=== PATIENT | male | born 1955 | race Caucasian/White ===

== ENCOUNTER 2016-11-17 22:46 | Inpatient (IN) ==
[2016-11-17 23:17] LABS: MANUAL DIFF NEEDED? NO
[2016-11-17 23:21] LABS: BASO% 0.5 % (0.0-0.8); EOS# 0.42 X1000 (0.0-0.7); EOS% 3.9 % (0.0-10.0); HEMATOCRIT 27.7 % (42.0-52.0); HEMOGLOBIN 9.5 g/dL (14.0-18.0); IMM GRAN# 0.03 X1000 (0.0-0.04); IMM GRAN% 0.3 % (0.0-0.5); LYMPH# 2.51 X1000 (1.2-3.4); LYMPH% 23.3 % (20.5-51.1); MCH 35.2 PG (27-31); MCHC 34.3 g/dL (33-37); MCV 102.6 FL (81-99); MONO% 10.2 % (1.7-9.3); MPV 11.6 FL (7.4-10.4); NEUT% 61.8 % (42.2-75.2); PLT 58 X1000 (130-400)
[2016-11-17] MEDS ORDERED: PROTONIX IV ONE (23:27)
[2016-11-17] MEDS ORDERED: SODIUM CHLORIDE 0.9% INJ ONE (23:27)
[2016-11-17 23:52] LABS: AGAP 14; ALBUMIN 2.7 g/dL (3.5-5.0); ALKALINE PHOSPHATASE 102 U/L (32-122); BUN 23 mg/dL (8-22); CALCIUM 8.3 mg/dL (8.8-10.2); CHLORIDE 106 mmol/L (98-107); COSMO 287; GOT 39 U/L (10-34); GPT 19 U/L (10-44); POTASSIUM 4.7 mmol/L (3.5-5.1); SODIUM 142 mmol/L (136-145); TCO2 22 mmol/L (25-35); TOTAL BILIRUBIN 1.93 mg/dL (0.20-1.00); TOTAL PROTEIN 5.3 g/dL (6.3-8.3)
[2016-11-17 23:53] LABS: INR 1.99; PROTIME 21.8 Seconds (9.2-11.7); PTT 35.2 Seconds (22.0-36.0)
[2016-11-17] MEDS: NS 1,000 ML IV PRN (23:53)
--- NOTE | 2016-11-18 00:39 | PROVIDER DOCUMENTATION ---
This chart was entered by Beba Lazar Scribe, acting as scribe for Tyler Hampton MD. HPI-Abdominal Pain/GI Problem - General Chief Complaint: GI Bleed Stated Complaint: VOMITING BLOOD Time Seen by Provider: 11/17/16 22:58 Source: patient Allergies/Adverse Reactions: Patient Allergies Allergy/AdvReac Type Severity Reaction Status Date / Time No Known Allergies Allergy Verified 11/17/16 23:20 - History of Present Illness-ABD Nature of Presenting Problems: 61 year old M presents to the ED with a cc of vomiting blood with an onset of this evening. PT staets that he has also been passing blood in stool with an onset of earlier today. PT states that he began feeling weak yesterday. PT has a history of esphogeal varicies. Abdominal Pain Onset Location: reports: generalized abdomen Severity in ED: reports: moderate Onset/Duration: reports: 2 days ago Associated Symptoms: reports: weakness Emesis Description: reports: red blood Bruising or Bleeding Gums?: No Similar Symptoms Previously?: Yes Recently seen or treated by another doctor?: No Review of Systems - Adult - REVIEW OF SYSTEMS - ADULT Constitutional: denies: chills, fever Eyes: reports: no symptoms reported Ears, Nose, Mouth & Throat: reports: no symptoms reported Cardiovascular: denies: chest pain, palpitations Respiratory: denies: cough, shortness of breath Gastrointestinal: reports: hematemesis, nausea, vomiting Genitourinary: denies: dysuria, hematuria Musculoskeletal: reports: no symptoms reported Integumentary: reports: no symptoms reported Neurological: reports: no symptoms reported Psychiatric: reports: no symptoms reported Endocrine: reports: no symptoms reported Hematologic/Lymphatic: reports: no symptoms reported Allergic/Immunologic: reports: no symptoms reported All Other Systems: Reviewed and Negative Past History - Adult - PAST MEDICAL HISTORY-ADULT Review of Records: reports: Nursing Assessment Review, Medications Reviewed Major Childhood Illnesses: reports: denies history Cardiovascular: reports: denies history Respiratory: reports: denies history Gastrointestinal: reports: GERD, liver disease, other (cirrhosis, hernia) Obstetrical/Gynecological: reports: denies history Genitourinary: reports: denies history Musculoskeletal: reports: denies history Neurological: reports: denies history Endocrine/Immune: reports: denies history Other Conditions: reports: denies history - PRIOR SURGERIES/PROCEDURES Surgical/Procedure History: reports: other (head 1997) - IMMUNIZATION STATUS Childhood Immunizations: See Nurse Assessment Flu Vaccine: See Nurse Assessment - SOCIAL HISTORY Smoking: cigarettes Provider spent 3-5 mins advising pt. on dangers of tobacco.: Discussed manners to quit use, and f/u contacts for add'l counseling. Alcohol Use Frequency: every day Number of drinks per typical drinking period:: 3-4 drinks Physical Exam-General - PHYSICAL EXAM-ADULT Initial Vital Signs Reviewed: Yes - CONSTITUTIONAL General Appearance: alert - EYES Eyes: pale conjunctivae - HEAD, EARS, NOSE, MOUTH & THROAT HENMT: other (dry mucous membranes) - RESPIRATORY Respiratory: chest non-tender, lungs clear, normal breath sounds - CARDIOVASCULAR Cardiovascular: normal peripheral pulses, regular rate, rhythm, no edema - GASTROINTESTINAL (ABDOMEN) Abdominal Exam: tenderness (umbilicus), hernia (umbilical) - SKIN Integumentary: other (pale) - PSYCHIATRIC Psych/Mental Status: normal mood/affect, normal thought content, normal thought process, oriented x 3 Progress - PLAN OF CARE/RESULTS Progress/Plan/Lab Results: Vital Signs - 8 hr 11/17/16 22:51 Temperature 97.7 F Pulse Rate 112 H Respiratory Rate 20 Blood Pressure 117/103 O2 Sat by Pulse Oximetry 100 Orders Category Date Time Status Saline Loc DIRECTED Care 11/17/16 22:55 Active CBC WITH ELECTRONIC DIFF [HEME] Stat Lab 11/17/16 22:55 Ordered COMPREHENSIVE METABOLIC PANEL [CHEM] Stat Lab 11/17/16 22:55 Uncollected OCCULT BLOOD NON-FECES Stat Lab 11/17/16 22:55 Uncollected OCCULT BLOOD SCREENING [STOOL] Stat Lab 11/17/16 22:55 Uncollected PROTIME WITH INR [COAG] Stat Lab 11/17/16 22:55 Uncollected PTT [COAG] Stat Lab 11/17/16 22:55 Uncollected TYPE & SCREEN [BBK] Stat Lab 11/17/16 22:55 Uncollected 0.9% Sodium Chloride Inj [Ns] 1,000 ml Med 11/17/16 22:55 Active IV 125 mls/hr Result Diagrams: 11/17/16 23:09 11/17/16 23:09 Departure - Departure Time of Disposition Decision: 00:38 DIAGNOSIS: GI bleeding Disposition: ADMITTED INPATIENT 09 Certified Medical Emergency: Emergent Condition: Stable Referrals and Follow-Ups: Ashutosh Mederos MD [Primary Care Provider] - - Critical Care Note This patient required my direct & personal management of CC.: Yes Attestation - Physician/ SERGEI Attestation Patient care was provided by Advanced Practice Provider:: Yes Advanced Practice Provider documentation review:: The Mid-level provider documentation, treatment plan and medical decision making was reviewed by the physician who agrees with all treatment and medical decision making by the MLP. The physician spent face to face time with patient:: Yes Advanced Practice Provider documentation review:: The physician spent face to face time with this patient and agrees with all MLP documentation, treatment, and medical decision making by the MLP. See provider notes for further information. This chart was documented by the indicated scribe, (Beba Lazar Scribe) and accurately reflects the services I performed and decisions made by me, Tyler Hampton MD, as attested by the provider's signature.
[2016-11-18] MEDS ORDERED: VITAMIN K SUBQ ONE (01:14)
[2016-11-18] MEDS: NS 1,000 ML IV PRN (01:43)
[2016-11-18] MEDS ORDERED: ZOFRAN IV PRN (02:16)
[2016-11-18] MEDS ORDERED: NS 1,000 ML IV SCH (02:16)
[2016-11-18] MEDS ORDERED: M.V.I.-12 10 ML, FOLIC ACID 1 MG, MAGNESIUM SULFATE 1 GM, THIAMINE 100 MG in NS 1,000 ML IV ONE (02:16)
--- NOTE | 2016-11-18 02:52 | HISTORY AND PHYSICAL ---
PRIMARY CARE PHYSICIAN: Dr. Mederos. REASON FOR ADMISSION: Weakness, nausea, and melanotic stools. HISTORY OF PRESENT ILLNESS: Mr. Usama Diallo is a 61-year-old male with prior history of alcoholic cirrhosis, who states he stopped drinking close to a year ago. He says for the last 2 days he has been feeling very weak, worse when he stands up. Twenty-four hours later, he noticed that he was feeling sick to his stomach and occasionally dry heaving. Early hours of yesterday morning, he went to the bathroom to defecate and passed a lot of melanotic stool. Thereafter, he said he felt much weaker and his nausea got worse. He then vomited a mix of what he described as coffee grounds and dark blood once at home. This caught his attention and he decided to seek care in the ER. While in the waiting room, he vomited dark blood estimated about 200 mL. He says since then he has been feeling even more lightheaded and weak. He has complains for the last 2 days of intermittent, spontaneous, crampy diffuse abdominal pain which is not affected by eating. He says as long as he keeps still the pain eases away and does not come. Once he starts to move around, the pain comes back and lasts a few minutes. No bleeding from any other orifices. No fever, no chills. No cardiorespiratory complaints. Denied any use of any NSAIDs. No neurological complaints. REVIEW OF SYSTEMS: Twelve system review is negative. Positive findings per HPI. Patient says he is thirsty and has a dry mouth for the last 24 hours. His appetite is also diminished. ALLERGIES: No known allergies. MEDICATIONS: None. 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 SOCIAL HISTORY: Smokes about a half pack a day. Lives in a facility for [facility]. No longer drinks or uses illicit drugs. FAMILY HISTORY: Other than lung cancer, denies any heart disease in both first-degree relatives. LABORATORY WORK: White count 10,000, hemoglobin and hematocrit 9 and 27, MCV 102, platelets 58,000, with normal differential. BUN is 23, creatinine 0.8, glucose 109, total bilirubin 1.9, AST 39, ALT 109, total albumin is 2.7. INR is 1.99, PTT 21. The patient's MELD score is 17. EXAMINATION: Vital signs: Blood pressure is 117/103, heart rate 112, respirations is 20, temperature 97.7 degrees, 100% on room air, breathing at 20 per minute. General: He is a middle-aged, man, lying in bed, not in acute distress. He is A and O x3. Normal mood and affect. HEENT: Head is normocephalic, atraumatic. Eyes: He is mildly icteric but mildly pale. JOANIE, EOMI. ENT exam is grossly normal. Neck: Supple. No JVD or carotid bruit. No thyromegaly. Neck: Supple. No JVD or carotid bruit. No thyromegaly. Chest: Clear to auscultation. Good air entry both lung venegas. Cardiovascular: First and second heart sounds heard. No gallops, murmurs, rubs. Rhythm is regular. Abdomen: Full, soft, with diffuse tenderness but no rebound or guarding. No mass or organomegaly. Hypoactive rectal sounds at this time. Patient has an umbilical hernia which is reducible. Extremities: No edema, clubbing or cyanosis. Motor system is grossly intact. Skin: Patient has decreased skin turgor and hypopigmented changes on his right upper extremity. Otherwise, nil of note. Musculoskeletal: Grossly within normal limits. ASSESSMENT: At this time is 1. Upper gastrointestinal bleed, probably secondary to varices (patient has prior history of medium varices). 2. Alcoholic cirrhosis. 3. Prior history of alcohol abuse. 4. Hemorrhagic anemia secondary to #1. 5. Moderate malnutrition. Albumin 2.1. 6. Coagulopathy secondary to chronic liver disease. PLAN: At this time, we will initiate aggressive IV fluid resuscitation. Do serial H and H and if less than 25 we will transfuse as needed. We will consult Dr. Vargas, who is well known to this patient, for possible endoscopy. IV PPIs and octreotide drip will be started. Empiric antibiotics to decrease infective complications in this patient population will be initiated also. Multivitamin also will be administered. In addition to hemoglobin and hematocrit, chemistries should also be followed. cc: Chris Latif MD
[2016-11-18] MEDS: LEVAQUIN 750 MG/D5W 750 MG/150 ML IVPB IV SCH (02:58)
[2016-11-18 03:01] LABS: HEMATOCRIT 24.4 % (42.0-52.0); HEMOGLOBIN 8.3 g/dL (14.0-18.0)
[2016-11-18 03:05] LABS: FERRITIN 207 ng/mL (30-400)
[2016-11-18] MEDS: SANDOSTATIN 500 MICROGM in D5W 100 ML IV SCH ×4 (04:36→22:33)
[2016-11-18 08:34] LABS: HEMATOCRIT 21.5 % (42.0-52.0); HEMOGLOBIN 7.4 g/dL (14.0-18.0)
[2016-11-18] MEDS: NS 1,000 ML IV SCH ×2 (09:36→22:18)
[2016-11-18] MEDS ORDERED: NS 500 ML ONE ×2 (11:06→14:48)
[2016-11-18] MEDS ORDERED: NS 0 ML ONE (12:12)
[2016-11-18] MEDS ORDERED: DIPRIVAN 1% ONE (14:34)
[2016-11-18] MEDS: PROTONIX 80 MG in NS 80 ML IV SCH ×3 (14:37→20:15)
--- NOTE | 2016-11-18 14:37 | OPERATIVE NOTE ---
PROCEDURE DATE: 11/18/2016 PROCEDURE: Esophagogastroduodenoscopy. PREOPERATIVE DIAGNOSIS: Gastrointestinal bleed. POSTOPERATIVE DIAGNOSIS: Hemorrhagic gastritis. No active bleeding. This pleasant gentleman presents with nausea, vomiting with coffee-grounds and bloody stools. Further evaluation being done with upper GI endoscopy. DESCRIPTION OF PROCEDURE: After informed consent and adequate intravenous sedation, the scope introduced to the esophagus. No varices seen. Cardia, fundus, body, antrum, entire area appears to be diffusely hemorrhagic and friable but no active bleeding or brisk bleeding. Duodenum is normal. The scope was withdrawn. The patient tolerated the procedure well without any immediate complications. He probably needs a colonoscopy Monday. cc: Laurie Garzon MD
[2016-11-18] MEDS ORDERED: EXTENSION SET 32 IN 4522 ONE (14:48)
[2016-11-18] MEDS ORDERED: ANESTHESIA PB SET 88 IN 5742 ONE (14:48)
[2016-11-18 22:56] LABS: HEMATOCRIT 24.8 % (42.0-52.0); HEMOGLOBIN 8.6 g/dL (14.0-18.0)
[2016-11-18] MEDS ORDERED: PROTONIX IV SCH (23:00)
[2016-11-19] MEDS: LEVAQUIN 750 MG/D5W 750 MG/150 ML IVPB IV SCH (02:08)
[2016-11-19] MEDS: PROTONIX 80 MG in NS 80 ML IV SCH ×3 (06:36→19:57)
[2016-11-19 07:37] LABS: MANUAL DIFF NEEDED? NO
[2016-11-19 07:49] LABS: PLT 35 X1000 (130-400)
[2016-11-19 07:50] LABS: BASO% 0.7 % (0.0-0.8); EOS# 0.31 X1000 (0.0-0.7); EOS% 7.5 % (0.0-10.0); HEMATOCRIT 27.2 % (42.0-52.0); HEMOGLOBIN 9.3 g/dL (14.0-18.0); INR 1.49; LYMPH# 1.19 X1000 (1.2-3.4); LYMPH% 28.6 % (20.5-51.1); MCH 33.7 PG (27-31); MCHC 34.2 g/dL (33-37); MCV 98.6 FL (81-99); MONO# 0.38 X1000 (0.11-0.59); MONO% 9.1 % (1.7-9.3); MPV 11.1 FL (7.4-10.4); NEUT% 54.1 % (42.2-75.2); PROTIME 16.1 Seconds (9.2-11.7); RBC 2.76 XMIL (4.7-6.1)
[2016-11-19 08:01] LABS: AGAP 6; ALBUMIN 2.3 g/dL (3.5-5.0); ALKALINE PHOSPHATASE 78 U/L (32-122); BUN 18 mg/dL (8-22); CALCIUM 7.3 mg/dL (8.8-10.2); CHLORIDE 111 mmol/L (98-107); COSMO 281; GOT 37 U/L (10-34); GPT 16 U/L (10-44); MAGNESIUM 1.9 mg/dL (1.5-2.7); POTASSIUM 4.7 mmol/L (3.5-5.1); SODIUM 140 mmol/L (136-145); TCO2 23 mmol/L (25-35); TOTAL BILIRUBIN 1.54 mg/dL (0.20-1.00); TOTAL PROTEIN 4.8 g/dL (6.3-8.3)
[2016-11-19] MEDS: SANDOSTATIN 500 MICROGM in D5W 100 ML IV SCH ×2 (09:59→19:57)
[2016-11-19] MEDS: NS 1,000 ML IV SCH (11:11)
[2016-11-19] MEDS ORDERED: NEUTRA-PHOS PO ONE (12:37)
--- NOTE | 2016-11-19 12:50 | PROGRESS NOTE ---
DATE: 11/19/2016 SUBJECTIVE: The patient is resting comfortably in bed. He denies having any nausea, vomiting or abdominal pain this morning. OBJECTIVE: Vital Signs: Temperature 97.6 degrees, blood pressure 91/65, heart rate 49, respirations 16, O2 saturations 98% on 2 L nasal cannula. General: This is an elderly male, lying in bed, in no acute distress. Head: Normocephalic atraumatic. Heart: S1, S2. Normal. Bradycardic. Lungs: Clear to auscultation bilaterally. No wheezes, no rales. No rhonchi. Abdomen: Positive bowel sounds. Soft, nontender, nondistended. Extremities: No edema. No cyanosis. No calf tenderness. Neurologic: The patient is alert and oriented x3. LABS: White blood cell count 4.1, hemoglobin 9.3, hematocrit 27, platelets 35,000. INR 1.4. Sodium 140, potassium 4.7, chloride 111, CO2 23. BUN 18, creatinine 0.9, glucose 87. Phosphorus 2.5, calcium 7.3. AST 37, ALT 16, albumin 2.3. ASSESSMENT AND PLAN: 1. Gastrointestinal bleed. The EGD yesterday showed hemorrhagic gastritis. We will continue on octreotide and Protonix drip. The patient will likely require a colonoscopy at the discretion of the associate product manager. 2. Anemia of acute blood loss. The patient's hemoglobin and hematocrit is stable. 3. Alcoholic liver cirrhosis. Aware. 4. Coagulopathy. Improved. The patient did receive 2 units of FFP yesterday. 5. Tobacco dependence. Aware. 6. Hypotension. The patient is currently on normal saline. We will continue to monitor the patient's blood pressure closely. A 2-dimensional echocardiogram has been ordered. 7. Thrombocytopenia. This is most likely secondary to the patient's liver dysfunction. We will continue to monitor the platelet count closely. cc: Ivis Savage MD
[2016-11-19] MEDS ORDERED: VITAMIN K 10 MG in NS 50 ML IV ONE (16:00)
--- NOTE | 2016-11-19 17:04 | ECHO REPORT ---
ORDER DATE: 11/19/2016 INTERPRETING PHYSICIAN: Dr. Mo Lboo ECHOCARDIOGRAPHIC MEASUREMENTS: Interventricular septum: 1.1 cm. Left ventricular posterior wall: 0.9 cm. Diastolic diameter: 3.8 cm. Left atrium: 4.1 cm. Aortic root: 3.3 cm. SUMMARY OF THE 2-DIMENSIONAL IMAGIN. Normal left ventricular cavity size. Estimated ejection fraction of 60%. 2. Aortic valve leaflets are trileaflet. Mitral valve was normal. Tricuspid valve was normal. 3. Peak velocity across the aortic valve less than 2 m/sec. There is no aortic stenosis. There is trace aortic regurgitation. 4. There is trace mitral regurgitation. Mild tricuspid regurgitation. Peak velocity across the tricuspid valve was 2.5 m/sec. 5. There is no pericardial effusion or obvious intracardiac mass or thrombus seen. cc: MD Ivis Vargas MD
--- NOTE | 2016-11-19 18:09 | PROGRESS NOTE ---
DATE: 11/19/2016 PRIMARY CIGARETTE LIGHTER REPAIRER: Dr. Vargas. SUBJECTIVE: Patient currently resting in chair. He denies any nausea, vomiting or vomiting blood. Denies any bowel movements today. He continues on liquid diet for now. He denies any fevers, rigor, chills. OBJECTIVE: Vitals: Temperature 98.8 degrees, pulse rate 64, respiratory 18, blood pressure 108/73 saturating 90% on 2 L nasal cannula, body weight of 136 pounds 3.2 ounces. General: Patient moderately nourished lying in a chair in no acute distress. HEENT: Pale conjunctiva, mild icterus. Neck: Supple. Abdomen: Soft, nontender, nondistended. Bowel sounds are present. Extremities: No cyanosis, clubbing. Neuro: Alert, awake, oriented. LABS: Hemoglobin and hematocrit is 9.3, 27.2, white count of 4.1, platelet count of 35,000, MCV of 98.6, INR 1.49, PTT of 35.2, PT of 16.1. Sodium 140, potassium 4.7, chloride 111, bicarb 23, anion gap of 6, BUN of 18, creatinine 0.9, glucose of 87, calcium 7.3, phosphorus 2.5 magnesium 1.9, total bilirubin 1.5, AST 37, ALT 16, alkaline phosphatase is 78 , total protein 4.8, albumin of 2.3, ammonia 40, folate 11.9, B12 741. IMPRESSION AND PLAN: 1. Alcoholic liver cirrhosis complicated with history of esophageal varices, portal hypertension, anemia, thrombocytopenia, coagulopathy, hypoalbuminemia. Patient has quit drinking in June 2016. He is followed by Dr. Vargas. Will continue to avoid hepatotoxic drugs. 2. Anemia. Continue to follow. Transfuse 1 unit of blood transfusion his hematocrit less than 23%. 3. Thrombocytopenia. Continue follow and it continues to worsen and go below 20,000 then we may transfuse him 1 unit of platelets. 4. Coagulopathy. Will give vitamin K and try to keep the INR less than 1.5. 5. Gastrointestinal bleeding. Patient continue on octreotide and Protonix drip for 3 days and then will be transitioned to Protonix twice daily. 6. Tobacco dependence, patient counseled to quit smoking completely. 7. Hypotension. Continue with IV fluids and hold any kind of antihypertensive. 8. Gastrointestinal prophylaxis as above with PPIs and Carafate. 9. Will keep him on IV antibiotics in the setting of liver cirrhosis and GI bleeding. 10. Above plan discussed with patient and the RN and all questions. cc: Ashutosh Mederos MD MTDD
[2016-11-19] MEDS: CENTRUM SILVER PO SCH (20:00)
[2016-11-19] MEDS: CARAFATE PO SCH (20:00)
[2016-11-19] MEDS: ICAR-C PO SCH (20:01)
[2016-11-20] MEDS: NS 1,000 ML IV SCH (01:30)
[2016-11-20] MEDS: LEVAQUIN 750 MG/D5W 750 MG/150 ML IVPB IV SCH (02:25)
[2016-11-20] MEDS: PROTONIX 80 MG in NS 80 ML IV SCH ×2 (05:54→16:38)
[2016-11-20 06:11] LABS: INR 1.52; PROTIME 16.4 Seconds (9.2-11.7)
[2016-11-20] MEDS: SANDOSTATIN 500 MICROGM in D5W 100 ML IV SCH ×3 (06:16→16:38)
[2016-11-20 06:17] LABS: HEMATOCRIT 26.7 % (42.0-52.0); MCH 33.3 PG (27-31); MCHC 33.7 g/dL (33-37); MCV 98.9 FL (81-99); MPV 11.8 FL (7.4-10.4); RBC 2.7 XMIL (4.7-6.1)
[2016-11-20 06:38] LABS: AGAP 9; ALKALINE PHOSPHATASE 75 U/L (32-122); BUN 10 mg/dL (8-22); CHLORIDE 112 mmol/L (98-107); COSMO 280; GOT 39 U/L (10-34); GPT 16 U/L (10-44); POTASSIUM 3.4 mmol/L (3.5-5.1); SODIUM 141 mmol/L (136-145); TCO2 20 mmol/L (25-35); TOTAL BILIRUBIN 1.42 mg/dL (0.20-1.00); TOTAL PROTEIN 4.2 g/dL (6.3-8.3)
[2016-11-20 07:07] LABS: CALCIUM 7.1 mg/dL (8.8-10.2)
[2016-11-20] MEDS: ICAR-C PO SCH ×2 (08:26→20:31)
[2016-11-20] MEDS: CENTRUM SILVER PO SCH ×2 (08:26→20:31)
[2016-11-20] MEDS: CARAFATE PO SCH ×4 (08:26→20:31)
[2016-11-20] MEDS ORDERED: KLOR-CON PO ONE (09:11)
[2016-11-20] MEDS ORDERED: VITAMIN K PO ONE (12:20)
--- NOTE | 2016-11-20 14:40 | PROGRESS NOTE ---
DATE: 11/20/2016 SUBJECTIVE: The patient is resting comfortably in bed. He does complain of occasional abdominal discomfort. He has not had a bowel movement yet. OBJECTIVE: Vital Signs: Temperature 98.5 degrees, blood pressure 105/65, heart rate 54, respirations 15, O2 saturations 91% on room air. General: This is an elderly male, lying in bed, in no acute distress. Head: Normocephalic, atraumatic. Heart: S1, S2. Normal. Regular rate and rhythm. Lungs: Clear to auscultation bilaterally. No wheezes, no rales. No rhonchi. Abdomen: Positive bowel sounds. Soft, nontender, nondistended. Extremities: No edema. No cyanosis. No calf tenderness. Neurologic: The patient is alert oriented x3. LABORATORY: White blood cell count 9.2, hemoglobin 9, hematocrit 26, platelets 39,000. INR 1.5, sodium 141, potassium 3.4, chloride 112, CO2 20, BUN 10, creatinine 0.8, glucose 97. Total bilirubin 1.4, AST 39, ALT 16, albumin 2. ASSESSMENT AND PLAN: 1. Gastrointestinal bleed. The patient's hemoglobin and hematocrit are slightly decreased today. The patient has not had a bowel movement yet or any further hematemesis. We will continue on octreotide and Protonix drip. Further management as per the doweler. 2. Hemorrhagic gastritis. Continue on Protonix drip. 3. Alcoholic liver cirrhosis. Aware. 4. Thrombocytopenia. We will continue to monitor the platelet count closely. The patient may benefit from a platelet transfusion if colonoscopy is planned during this hospitalization. 5. Coagulopathy. We will give the patient a dose of vitamin K today. 6. Severe protein calorie malnutrition. We will consult the dietitian for further diet recommendations. 7. Hypokalemia. We will replace the patient's potassium. 8. Anemia. The patient's hemoglobin and hematocrit is slightly decreased today. We will continue to monitor closely and transfuse as needed. cc: Ivis Savage MD
--- NOTE | 2016-11-20 17:40 | PROGRESS NOTE ---
DATE: 11/20/2016 PRIMARY CARE PHYSICIAN: Mary Kay Vargas MD SUBJECTIVE: Patient resting in bed. He denies any nausea, vomiting or vomiting blood. He had no bowel movements today. He is able to eat 50% of his liquid meal day. He denies any fevers, rigors, or chills. OBJECTIVE: Vital signs: Temperature of 98.3 degrees, pulse rate 55, respiratory rate 18, blood pressure 107/60, saturating 93% on room air. General Appearance: Thinly built, lying in bed, in no acute distress. HEENT: Mild icterus. Neck: Supple. Abdomen: Soft, nontender, nondistended. Bowel sounds heard. No guarding. No rebound. Extremities: No cyanosis, clubbing. Neurologic: Alert, awake, oriented. LABORATORY/DIAGNOSTICS: Hemoglobin and hematocrit 9 and 26.7, white count 3.27, platelet count of 39,000. INR 1.5, PT of 16.4, sodium 140, potassium 3.4, chloride 112, bicarb 20, anion gap of 9, BUN of 10, creatinine 0.8, glucose of 97, calcium 7.1, total bilirubin is 1.42, AST 39, ALT 16, alkaline phosphatase 75, total protein 4.2, albumin of 2. Ammonia level of 40. His last CAT scan was done on 10/18/2016 which showed cirrhosis. Mild constipation. IMPRESSION AND PLAN: 1. Gastrointestinal bleed which the patient will continue on Protonix and octreotide drip total of 72 hours. After that, IV Protonix twice daily. We will continue to watch hemoglobin and hematocrit and type and cross, transfuse hematocrit to keep more than 25%. The patient will resume further care with Dr. Vargas from tomorrow. 2. Alcoholic liver cirrhosis. Avoid any hepatotoxic drugs. The patient has quit alcohol since June 2016. He may need a liver transplant evaluation at [facility]. We will leave it to the discretion of primary care team and Dr. Vargas. 3. Thrombocytopenia which is improved slightly. I will continue to watch. 4. Coagulopathy. Continue watch done. 5. Anemia secondary to above. We will continue on iron supplementation. 6. The above plan was discussed with the patient and the nurse and all questions answered. cc: MD Mary Kay Espino MD Katherine Takundwa, MD
[2016-11-21] MEDS: SANDOSTATIN 500 MICROGM in D5W 100 ML IV SCH ×3 (03:15→21:56)
[2016-11-21] MEDS: PROTONIX 80 MG in NS 80 ML IV SCH (03:15)
[2016-11-21] MEDS: LEVAQUIN 750 MG/D5W 750 MG/150 ML IVPB IV SCH (03:15)
--- NOTE | 2016-11-21 06:02 | EKG Report ---
Test Performed on : 11/19/2016 11:12:49 AM Test Reason : bradycardia Blood Pressure : / mmHG Vent. Rate : 058 BPM Atrial Rate : 058 BPM P-R Int : 136 ms QRS Dur : 088 ms QT Int : 460 ms P-R-T Axes : 066 051 043 degrees QTc Int : 451 ms Sinus bradycardia. Otherwise normal ECG When compared with ECG of 14-MAR-2016 05:39, No significant change was found Confirmed by Jeremiah Brito MD ([id number]) on 11/21/2016 11:21:36 AM
[2016-11-21] MEDS: PROTONIX IV SCH ×2 (08:50→20:44)
[2016-11-21] MEDS: CARAFATE PO SCH ×4 (08:50→20:05)
[2016-11-21] MEDS: CENTRUM SILVER PO SCH ×2 (08:50→20:05)
[2016-11-21] MEDS: SODIUM CHLORIDE 0.9% INJ SCH (08:50)
[2016-11-21] MEDS: ICAR-C PO SCH ×2 (08:50→20:05)
[2016-11-21 09:11] LABS: INR 1.5; PROTIME 16.2 Seconds (9.2-11.7)
[2016-11-21 09:15] LABS: HEMOGLOBIN 10.3 g/dL (14.0-18.0); MCH 34.3 PG (27-31); MCHC 34.3 g/dL (33-37); MPV 10.9 FL (7.4-10.4)
[2016-11-21 09:24] LABS: AGAP 8; ALBUMIN 2.2 g/dL (3.5-5.0); ALKALINE PHOSPHATASE 82 U/L (32-122); BUN 8 mg/dL (8-22); CALCIUM 7.7 mg/dL (8.8-10.2); CHLORIDE 108 mmol/L (98-107); COSMO 274; GOT 39 U/L (10-34); GPT 16 U/L (10-44); MAGNESIUM 1.6 mg/dL (1.5-2.7); POTASSIUM 3.6 mmol/L (3.5-5.1); SODIUM 137 mmol/L (136-145); TCO2 21 mmol/L (25-35); TOTAL BILIRUBIN 1.59 mg/dL (0.20-1.00); TOTAL PROTEIN 4.6 g/dL (6.3-8.3)
[2016-11-21] MEDS: VITAMIN K SUBQ SCH (10:17)
--- NOTE | 2016-11-21 11:08 | PROGRESS NOTE ---
DATE: 11/21/2016 SUBJECTIVE: The patient has no focal complaints. OBJECTIVE: Vital Signs: Blood pressure 92/58, heart rate of 56, respiratory rate 16, temperature 99.2 degrees, and oxygen saturation 96% on room air. Cardiovascular: Regular rate and rhythm. Pulmonary: Bilateral breath sounds. Clear to auscultation. Gastrointestinal: Soft, nontender, nondistended. Bowel sounds are positive. Extremities: No clubbing or cyanosis. Lymphatics: No peripheral edema. Neurological: Nonfocal. LABORATORY DATA: INR was 1.5. BUN and creatinine were 8 and 0.9. Total bilirubin of 1.59. Platelets of 35,000, white count of 3, hemoglobin and hematocrit of 10 and 30, and that is status post 2 units of blood and 2 units of FFP. PROBLEM LIST: 1. Acute gastrointestinal bleed associated with hemorrhagic gastritis. Hemoglobin and hematocrit seem to be stabilizing. He has no gross evidence of bleeding, however, and his blood count has stabilized. Platelet count is still low. I am going to go ahead and give him 1 dose of platelets just to get his platelets at least above 50,000. He is on intravenous proton pump inhibitor, octreotide, and Gastrointestinal is following. 2. Alcoholic liver cirrhosis. He is stable. He reportedly quit alcohol since June 2016, so he will be due for a liver transplant evaluation in another month if he continues to be sober. 3. Coagulopathy. We will continue vitamin K and follow. DISPOSITION: Pending other issues. If his hemoglobin and hematocrit continue to stabilize, I think he is probably okay to go to the floor in the next 24 hours. cc: Murtaza Burns MD
[2016-11-21] MEDS ORDERED: NS 250 ML IV SCH (11:52)
[2016-11-21] MEDS ORDERED: NS 250 ML ONE (11:54)
[2016-11-22] MEDS: LEVAQUIN 750 MG/D5W 750 MG/150 ML IVPB IV SCH (03:00)
[2016-11-22 05:51] LABS: HEMATOCRIT 28.5 % (42.0-52.0); HEMOGLOBIN 9.9 g/dL (14.0-18.0); MCH 34.5 PG (27-31); MCHC 34.7 g/dL (33-37); MCV 99.3 FL (81-99); MPV 11.3 FL (7.4-10.4); RBC 2.87 XMIL (4.7-6.1)
[2016-11-22 06:05] LABS: AGAP 8; ALBUMIN 2.3 g/dL (3.5-5.0); ALKALINE PHOSPHATASE 82 U/L (32-122); BUN 7 mg/dL (8-22); CALCIUM 7.8 mg/dL (8.8-10.2); CHLORIDE 107 mmol/L (98-107); COSMO 273; GOT 36 U/L (10-34); GPT 15 U/L (10-44); POTASSIUM 3.8 mmol/L (3.5-5.1); SODIUM 138 mmol/L (136-145); TCO2 23 mmol/L (25-35); TOTAL BILIRUBIN 1.64 mg/dL (0.20-1.00); TOTAL PROTEIN 4.6 g/dL (6.3-8.3)
[2016-11-22] MEDS: SANDOSTATIN 500 MICROGM in D5W 100 ML IV SCH ×2 (08:06→18:11)
[2016-11-22] MEDS: CARAFATE PO SCH ×4 (08:07→20:47)
[2016-11-22] MEDS: CENTRUM SILVER PO SCH ×2 (08:07→20:47)
[2016-11-22] MEDS: VITAMIN K SUBQ SCH (08:07)
[2016-11-22] MEDS: ICAR-C PO SCH ×2 (08:07→20:47)
[2016-11-22] MEDS: PROTONIX IV SCH ×2 (08:42→20:47)
[2016-11-22] MEDS: SODIUM CHLORIDE 0.9% INJ SCH ×2 (08:42→20:47)
--- NOTE | 2016-11-22 11:12 | PROGRESS NOTE ---
DATE: 11/22/2016 SUBJECTIVE: Patient denies any evidence of active bleeding. He is tolerating a full liquid diet. No significant complaints today. OBJECTIVE: Vital Signs: Temperature 98.1 degrees, pulse 61, respirations 16, blood pressure 97/51. General: Patient is awake and alert, in no acute distress. He is currently eating a full liquid diet. Respiratory: Lung sounds essentially clear. Abdomen: Soft. Some mild tenderness with palpation. DIAGNOSTIC RESULTS: Laboratory: Hematology reveals white count 4.47, hemoglobin 9.9, hematocrit 28.5, MCV 99.3. Chemistry: Sodium 138, potassium 3.8, chloride 107, CO2 23, BUN 7, creatinine 0.8, glucose 84. Total bilirubin 1.64, AST 36, ALT 15, alkaline phosphatase 82. Ammonia was 40 on 11/19/2016. ASSESSMENT: 1. Gastrointestinal bleed. Esophagogastroduodenoscopy was done on 11/[address] Garzon that showed hemorrhagic gastritis, but there was no gross evidence of active bleeding. He continues to be on octreotide and Protonix intravenous push. 2. Alcoholic liver cirrhosis. He quit alcohol since June. 3. Coagulopathy. 4. Low platelets. He has received platelets yesterday. PLAN: We will proceed with a colonoscopy and this will be done by Dr. Vargas tomorrow. We will prep him today. Further plans will be made according to findings. Further plans will be made as needed and per Dr. Vargas when she returns tomorrow. Dictated by JAMEL Webster for Rush Chen MD cc: JAMEL Wilkes MD
[2016-11-22] MEDS ORDERED: GOLYTELY PO ONE (14:00)
[2016-11-23] MEDS: SANDOSTATIN 500 MICROGM in D5W 100 ML IV SCH (03:55)
[2016-11-23 05:06] LABS: HEMATOCRIT 29.6 % (42.0-52.0); HEMOGLOBIN 10.1 g/dL (14.0-18.0); MCH 34.6 PG (27-31); MCHC 34.1 g/dL (33-37); MCV 101.4 FL (81-99); MPV 11.5 FL (7.4-10.4); RBC 2.92 XMIL (4.7-6.1)
[2016-11-23 05:19] LABS: AGAP 9; ALBUMIN 2.2 g/dL (3.5-5.0); ALKALINE PHOSPHATASE 82 U/L (32-122); BUN 7 mg/dL (8-22); CALCIUM 7.8 mg/dL (8.8-10.2); CHLORIDE 108 mmol/L (98-107); COSMO 277; GOT 32 U/L (10-34); GPT 14 U/L (10-44); POTASSIUM 3.8 mmol/L (3.5-5.1); SODIUM 140 mmol/L (136-145); TCO2 23 mmol/L (25-35); TOTAL BILIRUBIN 1.66 mg/dL (0.20-1.00); TOTAL PROTEIN 4.7 g/dL (6.3-8.3)
[2016-11-23] MEDS: VITAMIN K SUBQ SCH (08:01)
[2016-11-23] MEDS: SODIUM CHLORIDE 0.9% INJ SCH (08:22)
[2016-11-23] MEDS: PROTONIX IV SCH (08:22)
[2016-11-23] MEDS ORDERED: MIRALAX PO ONE (08:42)
[2016-11-23] MEDS: CENTRUM SILVER PO SCH (09:19)
[2016-11-23] MEDS: CARAFATE PO SCH ×3 (09:19→17:34)
[2016-11-23] MEDS: ICAR-C PO SCH (09:19)
[2016-11-23 09:52] LABS: INR 1.52; PROTIME 16.4 Seconds (9.2-11.7)
--- NOTE | 2016-11-23 10:53 | PROGRESS NOTE ---
DATE: 11/23/2016 SUBJECTIVE: The patient has no focal complaints. OBJECTIVE: Vital signs: Blood pressure 102/61, heart rate of 58, respiratory rate 16, temperature 99 degrees. Cardiovascular: Regular rate and rhythm. Pulmonary: Benign. Breath sounds clear to auscultation. GI: Soft, nontender, nondistended. Bowel sounds were positive. LABORATORY DATA: White count 5, hemoglobin and hematocrit 10 and 29, platelets of 47,000--that is up a little bit from yesterday's 46,000. INR 1.66. PROBLEM LIST: 1. Gastrointestinal bleed likely related again to hemorrhagic gastritis. We will continue to follow. Hemoglobin and hematocrit are stable. There is no further evidence of bleeding. Plan is for colonoscopy today, I am assuming because he is high risk. INR is still up a little bit. Platelets are still low. He is still on octreotide and q.12 h. proton pump inhibitor. I think today will be day 5 for the octreotide--that can be discontinued. 2. Alcoholic liver, alcoholic cirrhosis, [place] cirrhosis, currently stable. Will need outpatient liver transplant evaluation. 3. Coagulopathy. He has been getting Vitamin K and I think Dr. Vargas ordered another unit of FFP today. DISPOSITION: Again, I think from the active GI bleed issues he seems to be stable. I did not get in report that he had any continued bleeding. If his colonoscopy is negative, could consider discharge either later today, definitely by tomorrow. cc: Murtaza Burns MD
[2016-11-23] MEDS ORDERED: SANDOSTATIN 500 MICROGM in D5W 100 ML IV SCH (13:00)
[2016-11-23] MEDS ORDERED: NS 500 ML IV SCH (15:14)
[2016-11-23] MEDS ORDERED: DIPRIVAN 1% ONE (18:24)
[2016-11-23] MEDS: AUGMENTIN PO SCH (22:13)
--- NOTE | 2016-11-23 22:39 | PROGRESS NOTE ---
DATE: 11/23/2016 SUBJECTIVE: The patient is a 61-year-old, white male, admitted on 11/18/2016 with acute GI bleed. He underwent an EGD by Dr. Garzon over the weekend and it was negative for source of bleeding. He continues to have a low hemoglobin. We were asked to perform endoscopic evaluation. The patient denies abdominal pain, nausea with vomiting, fever and chills. He received GoLYTELY overnight. However, his stool remains brown. OBJECTIVE: Vital signs: On exam, his blood pressure is 102/61, pulse 58, respirations 16, temperature of 98 degrees. HEENT: Negative for jaundice. Chest: Clear to auscultation with normal expiratory effort. Cardiovascular: Reveals regular rate and rhythm with no murmurs, gallops, or rubs. Abdominal: Reveals normoactive bowel sounds. The abdomen is soft, nontender with no rebound or guarding. Extremities: Bilaterally are negative for cyanosis, clubbing, or edema. OBJECTIVE DATA: Reveals a hemoglobin of 10.1 with hematocrit of 29.6 and white count of 5.24. He has 47,000 platelets. Sodium is 140, potassium 3.8, chloride 108, CO2 of 23, BUN 7, creatinine 0.7, glucose of 91. Calcium 7.8, total bilirubin 1.66, AST 32, ALT 14, alkaline phosphatase 82, total protein 4.7, albumin 2.2. IMPRESSION: 1. Gastrointestinal bleed with no source found. 2. Alcohol liver disease. 3. History of peptic ulcer disease. 4. Thrombocytopenia, secondary to his cirrhosis and alcohol liver disease. 5. Abdominal pain. 6. Coagulopathy secondary to alcohol liver disease. (International normalized ratio greater than 1.52). RECOMMENDATION: 1. Please repeat his prothrombin time and international normalized ratio. I would administer fresh frozen plasma x1 unit if it remains greater than 1.5. The patient has significant thrombocytopenia, would benefit from 1 unit of platelets prior to endoscopic evaluation. 2. We will plan to perform a colonoscopy today to assess his lower gastrointestinal tract for sources of bleeding. 3. Please administer MiraLAX prep. 4. We will plan to perform the procedure this afternoon. Consent was discussed and questions were answered. cc: MD Ashutosh Still MD Alexis R. Penot, MD
--- NOTE | 2016-11-24 00:52 | OPERATIVE NOTE ---
PROCEDURE DATE: 11/23/2016 REFERRING PHYSICIAN: Murtaza Burns M.D. PRIMARY CARE PHYSICIAN: Ashutosh Mederos M.D. INDICATION FOR PROCEDURE: GI bleed, with no source found on EGD. PROCEDURE PERFORMED: Colonoscopy, with control of bleeding. CONSENT: Informed consent was obtained from the patient prior to the procedure. The risks, benefits, and alternatives were discussed. MEDICATION: The patient received monitored anesthesia care. PERFORMING PHYSICIAN: Mary Kay Vargas M.D. ASSISTANTS: 1. [facility]. [facility] 2. Binta Richards RN. 3. Pina Hernandez CRNA. 4. Ish Hernandez M.D. (anesthesia). COMPLICATIONS: There were no complications. ESTIMATED BLOOD LOSS: 2-3 mL from the actively bleeding AVMs. There was minimal blood loss directly related to the procedure. SPECIMENS REMOVED: None. FINDINGS: After sedation was achieved, the pediatric colonoscope was inserted to the terminal ileum. The terminal ileum appeared endoscopically normal. In the cecal base, there were nonbleeding AVMs. The appendiceal orifice and ileocecal valve appeared endoscopically normal. On the proximal ascending colon surface of the valve, as well as in the initial portion of the ascending colon, there were 3 actively bleeding AVMs. Cautery was applied. Upon further withdrawal, the mucosa of the ascending colon appeared inflamed, but there were no other lesions found. In the transverse colon, there was an additional bleeding AVM in the mid transverse colon that was cauterized. The colon appeared inflamed, but there were no ulcerations or other lesions. Upon further withdrawal, just distal to the splenic flexure, there was a significant increase in the amount of inflammation present in the colon. There were noninflamed diverticula in the descending, sigmoid, and rectosigmoid colon. No masses or polyps were seen. In the rectum, there were nonbleeding AVMs. There were grade 2 internal hemorrhoids on forward view. There were large hemorrhoids on retroflexed view. There was no stigmata of bleeding. After the exam was complete, the lumen was decompressed and the scope was removed without incident. IMPRESSION: 1. 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 Hemostasis was achieved with cautery. 2. Nonspecific colitis. 3. Nonbleeding arteriovenous malformations in the left colon. 4. Diverticulosis. 5. Grade 2 internal hemorrhoids. 6. Nonbleeding rectal arteriovenous malformations. 7. Large external hemorrhoids. RECOMMENDATIONS: 1. Continue octreotide for another 72 hours, and then stop. 2. Monitor serial hemoglobin and hematocrit, given his actively bleeding lesions. 3. Please monitor his liver function tests, PT/INR, and CRP over the next 3 days. 4. Begin Augmentin 1 p.o. b.i.d. for 10 days for the nonspecific colitis. Due to his INR being greater than 1.5, biopsies were not taken. 5. Repeat colonoscopy in 5 years to screen for polyps. 6. Assuming that his hemoglobin remains stable, I anticipate he should be ready for discharge in the next 2-3 days. 7. We will have the patient return to clinic in 4 weeks to assess interval progress. cc: MD Murtaza Still MD Malcolm R. Hendricks, MD MTDD
[2016-11-24 06:20] LABS: INR 1.44; PROTIME 15.5 Seconds (9.2-11.7)
[2016-11-24 06:29] LABS: HEMATOCRIT 27.9 % (42.0-52.0); HEMOGLOBIN 9.4 g/dL (14.0-18.0); MCH 34.6 PG (27-31); MCHC 33.7 g/dL (33-37); MCV 102.6 FL (81-99); MPV 11.4 FL (7.4-10.4); RBC 2.72 XMIL (4.7-6.1)
[2016-11-24 06:36] LABS: AGAP 9; BUN 8 mg/dL (8-22); CALCIUM 7.5 mg/dL (8.8-10.2); CHLORIDE 106 mmol/L (98-107); COSMO 276; POTASSIUM 3.7 mmol/L (3.5-5.1); SODIUM 138 mmol/L (136-145); TCO2 23 mmol/L (25-35)
[2016-11-24 06:47] LABS: ALBUMIN 2.6 g/dL (3.5-5.0); DIRECT BILIRUBIN 0.6 mg/dL (0.00-0.20); TOTAL BILIRUBIN 1.5 mg/dL (0.20-1.00); TOTAL PROTEIN 4.9 g/dL (6.3-8.3)
[2016-11-24] MEDS ORDERED: ANESTHESIA PB SET 88 IN 5742 ONE (08:18)
[2016-11-24] MEDS ORDERED: LR 1,000 ML ONE (08:18)
[2016-11-24] MEDS: AUGMENTIN PO SCH (09:43)
[2016-11-24] MEDS ORDERED: BENADRYL IV ONE (11:53)
[2016-11-24] MEDS ORDERED: TYLENOL PO ONE (11:53)
[2016-11-24] MEDS ORDERED: TYLENOL PO PRN (16:11)
[2016-11-24] MEDS ORDERED: ZOFRAN IV PRN (16:11)
[2016-11-24] MEDS: SANDOSTATIN 500 MICROGM in D5W 100 ML IV SCH (16:48)
[2016-11-24] MEDS: PROTONIX IV SCH (16:51)
[2016-11-24] MEDS: SODIUM CHLORIDE 0.9% INJ SCH (16:51)
[2016-11-24] MEDS: LEVAQUIN 500 MG/D5W 500 MG/100 ML IVPB IV SCH (16:52)
--- NOTE | 2016-11-24 17:18 | PROGRESS NOTE ---
DATE: 11/24/2016 SUBJECTIVE: The patient has no focal complaints. OBJECTIVE: Vital signs: Blood pressure 98/55, heart rate 57, respiratory rate 16, temperature 98.7 degrees. Cardiovascular: Regular rate and rhythm. Pulmonary: Bilateral breath sounds. Clear to auscultation. GI: Soft, nontender, nondistended. Bowel sounds are positive. LABORATORY DATA: Hemoglobin and hematocrit are 9 and 27, platelets of 65,000. INR of 1.4. CMP was normal. Bilirubin 1.5. Colonoscopy findings as described. He had multiple linear erosions and some active bleeding associated with AVMs and he had hemostasis with cautery, diverticulosis, external internal hemorrhoids. PROBLEM LIST: 1. Upper gastrointestinal bleed. We will resume his Protonix and follow closely. Hemoglobin and hematocrit have dropped a little bit since yesterday but is stable since the 7th, which was 4 days ago. So if he bleeding he is not dropping his hemoglobin significantly. Plan for the diverticular issues is to continue the octreotide for another 2-[address] Vargas's recommendations; we reorder that. Somehow it was not continued with his transfer orders. 2. Anemia. The patient is stable. Continue to monitor. 3. Colitis. He was empirically placed on Augmentin but the patient reports increasing swelling and pain in his eyes. He had been on Levaquin. I am just going to continue that for right now with Digna and we will follow clinically. 4. Disposition. Again pending GI but we will continue to follow and see how he is doing. Hopefully home in the next couple of days. cc: Murtaza Burns MD
[2016-11-24] MEDS: FLAGYL 500 MG/NS 500 MG/100 ML IVPB IV SCH (17:58)
[2016-11-25] MEDS: FLAGYL 500 MG/NS 500 MG/100 ML IVPB IV SCH ×5 (01:17→18:36)
[2016-11-25] MEDS: SANDOSTATIN 500 MICROGM in D5W 100 ML IV SCH ×3 (01:18→12:20)
[2016-11-25] MEDS: PROTONIX IV SCH ×2 (04:56→16:03)
[2016-11-25] MEDS: SODIUM CHLORIDE 0.9% INJ SCH ×2 (04:56→16:03)
[2016-11-25 06:11] LABS: HEMATOCRIT 28.3 % (42.0-52.0); HEMOGLOBIN 9.5 g/dL (14.0-18.0); MCH 34.8 PG (27-31); MCHC 33.6 g/dL (33-37); MCV 103.7 FL (81-99); MPV 11.5 FL (7.4-10.4); RBC 2.73 XMIL (4.7-6.1)
[2016-11-25 06:17] LABS: INR 1.63; PROTIME 17.6 Seconds (9.2-11.7)
[2016-11-25 06:34] LABS: AGAP 10; BUN 6 mg/dL (8-22); CALCIUM 7.3 mg/dL (8.8-10.2); CHLORIDE 112 mmol/L (98-107); COSMO 286; MAGNESIUM 1.7 mg/dL (1.5-2.7); POTASSIUM 4.4 mmol/L (3.5-5.1); SODIUM 145 mmol/L (136-145); TCO2 23 mmol/L (25-35)
[2016-11-25] MEDS: THERA M PLUS PO SCH (08:50)
[2016-11-25] MEDS: LEVAQUIN 500 MG/D5W 500 MG/100 ML IVPB IV SCH ×2 (15:46→17:26)
[2016-11-26] MEDS: SANDOSTATIN 500 MICROGM in D5W 100 ML IV SCH (04:04)
[2016-11-26] MEDS: FLAGYL 500 MG/NS 500 MG/100 ML IVPB IV SCH ×2 (04:04→14:22)
--- NOTE | 2016-11-26 07:24 | PROGRESS NOTE ---
DATE: 11/25/2016 SUBJECTIVE: The patient has no focal complaints. OBJECTIVE: Vital Signs: Blood pressure 155, heart rate 60, respiratory rate 18, temperature 98.4 degrees. Cardiovascular: Regular rate and rhythm. Pulmonary: Bilateral breath sounds. Clear to auscultation. Gastrointestinal: Abdomen is soft, nontender, nondistended. Bowel sounds are positive. Extremities: No clubbing or cyanosis. Lymphatics: No peripheral edema. LABORATORY DATA: White count 4. Hemoglobin and hematocrit 9 and 28. Platelets of 58,000. Chemistries look okay. PROBLEM LIST: 1. Upper gastrointestinal bleed, lower gastrointestinal bleed, with hemorrhagic gastritis and colonic arteriovenous malformations. Hemoglobin and hematocrit is stable. We will continue to monitor. 2. Nonspecific colitis. He is on Levaquin and Flagyl. We will continue to follow closely. 3. Cirrhosis, end-stage. We will continue to monitor. He appears to be compensated. DISPOSITION: The patient is very interested in trying to go home soon. I think we could probably complete his treatment tomorrow and he can go home when stable. cc: Murtaza Burns MD
[2016-11-26] MEDS: PROTONIX IV SCH (08:13)
[2016-11-26 08:45] LABS: HEMATOCRIT 28.1 % (42.0-52.0); HEMOGLOBIN 9.4 g/dL (14.0-18.0)
[2016-11-26] MEDS: THERA M PLUS PO SCH (11:42)
[2016-11-26 15:48] VITALS: BP 107/57
--- NOTE | 2016-11-26 19:04 | PROGRESS NOTE ---
DATE: 11/24/2016 SUBJECTIVE: The patient states that he feels much better and denies bleeding overnight. On exam, his blood pressure is 98/55, pulse 57, respirations 16, temperature of 98.7 degrees. On abdominal examination, his abdomen is soft, nontender, with no rebound or guarding. OBJECTIVE DATA: Reveals a hemoglobin of 9.4 with hematocrit of 27.9 and a white count of 4.51. He has 65,000 platelets. His PT is 15.5 with an INR of 1.4. His sodium is 138, potassium 3.7, chloride 106, CO2 of 23, BUN 8, creatinine 0.7 with a glucose of 127. Calcium is 7.5, total bilirubin 1.50, direct bilirubin 0.60, AST 33, ALT 14, alkaline phosphatase 99, total protein 4.9, albumin 2.6. RECOMMENDATION: 1. The patient remains on octreotide drip for bleeding from arteriovenous malformations that were cauterized. Overall, he is doing well. Therefore, I would recommend monitoring for the next 1-2 days. If his hemoglobin remains stable, he should be able to be discharged over the weekend. 2. We will have the patient return to clinic in 3-4 weeks to assess interval progress. cc: MD Murtaza Still MD Malcolm R. Hendricks, MD
--- NOTE | 2016-11-26 19:12 | PROGRESS NOTE ---
DATE: 11/26/2016 SUBJECTIVE: The patient states that he feels much better and is ready to go home. His hemoglobin dropped slightly but has remained stable overnight. PHYSICAL EXAMINATION: Vital Signs: His blood pressure is 109/66, pulse 66, respiration 18, temperature of 98.3 degrees. OBJECTIVE DATA: Reveals a hemoglobin of 9.5 with hematocrit of 28.3, and a white count of 4.28. He has 58,000 platelets. PT is 17.6 with an INR of 1.63. Sodium 145, potassium 4.4, chloride 112, CO2 of 23, BUN 6, creatinine 0.8 with a glucose of 97. Calcium is 7.3 with a magnesium of 1.7. RECOMMENDATION: 1. Continue current medical management. 2. I anticipate discharge in the next 24-48 hours as long as his hemoglobin remains stable. 3. He had questions about liver transplant. Because his last drink was a few months ago, he will need to be involved in alcohol rehab and follow the protocol to be evaluated for liver transplant. Currently, his MELD score does not indicate transplantation is necessary at this time. I recommend that he return to clinic for formal evaluation to determine when we should refer him for possible outpatient liver transplant clinic appointment. 4. We will have the patient return to clinic in 3-4 weeks after hospital discharge. cc: MD Ashutosh Still MD Alexis R. Penot, MD
--- NOTE | 2016-11-28 05:21 | DISCHARGE SUMMARY ---
ADMISSION DATE: 11/18/2016 DISCHARGE DATE: 11/26/2016 DISCHARGE DIAGNOSES: 1. Upper gastrointestinal bleed and lower gastrointestinal bleed. 2. Alcoholic cirrhosis. 3. Coagulopathy associated with cirrhosis. 4. Anemia. 5. Moderate malnutrition. PROCEDURES: 1. EGD completed by Dr. Garzon on 11/18/2016 with hemorrhagic gastritis without bleeding. 2. Colonoscopy per Dr. Vargas on 11/23/2016 with descending colon and transverse colon AVM, nonspecific colitis, nonbleeding AVM in left colon, diverticulosis, and internal and external hemorrhoids. 3. Blood product transfusions, he had 2 units of blood, 3 units of FFP, and 2 units of platelets. HOSPITAL COURSE: Briefly, this is a 61-year-old gentleman with alcoholic cirrhosis, although I do not think he has had any alcohol in the last 4-5 months. He came in with nausea, vomiting, and melenic stool. He was placed on IV fluids, PPI, octreotide. EGD showed hemorrhagic gastritis. He was maintained on octreotide and Protonix. He was supplemented, getting blood products. Echocardiogram was obtained. He had hypotensive issues. EF was 60%, really otherwise unremarkable. Hemoglobin and hematocrit stabilized. I did end up giving him a dose of platelets. He ended up getting 2 units of blood. He was maintained on vitamin K. He has slowly improved. On the , his hemoglobin and hematocrit had stopped. We did give him a dose of platelets at that time. On the , the plan was for colonoscopy the following day, when Dr. Vargas would return but his hemoglobin and hematocrit had been stable. However, his colonoscopy showed some bleeding associated with AVMs which were cauterized. Dr. Vargas recommended another 72 hours of octreotide. By the , he was stabilized. His hemoglobin and hematocrit had been 9 and 28 pretty much since the . It had gone up to 10 and 29 on the but was 9 and 28 on the . He has not had any further bleeding. Initially, I put him on Augmentin for his colitis. Discharge condition was stable. He will need a repeat CBC in about a week. He will be discharged on Cipro 500 b.i.d. for another 5 days, Flagyl 500 t.i.d. for another 5 days, multivitamin daily, and Prilosec 40 b.i.d. DISCHARGE CONDITION: Stable. TIME SPENT: This is a 35 minute discharge. DISCHARGE INSTRUCTIONS: He was told to avoid aspirin, alcohol, NSAIDS. Follow a low sodium diet. cc: MD Mary Kay Clark MD
== END 2016-11-26 17:49 | disposition home or self-care (01) ==
LOC: ED 22:46 → SUATTDRO 11-18 01:51 → 4N 11-18 01:51 → ICU 11-18 10:30 → 4N 11-23 10:11
PROVIDERS: ATTEND Internal Medicine
PROC: EN.HEAT (2016-11-23 17:20)

== ENCOUNTER 2016-12-14 13:34 | Inpatient (IN) ==
--- NOTE | 2016-12-14 15:05 | Diag Imaging Result Doc PS360 ---
EXAM: CHEST-2 VIEWS HISTORY: dizziness TECHNIQUE: PA and lateral COMMENT: There is no evidence of acute cardiac or pulmonary disease. Compared to 12/30/2015 there has been no significant change. IMPRESSION: Stable chest. Electronically signed by Manohar Edwards 12/14/2016 3:03 PM
[2016-12-14 16:26] LABS: MANUAL DIFF NEEDED? NO
[2016-12-14 16:39] LABS: BASO% 0.2 % (0.0-0.8); EOS# 0.07 X1000 (0.0-0.7); EOS% 0.7 % (0.0-10.0); HEMATOCRIT 37.4 % (42.0-52.0); HEMOGLOBIN 12.7 g/dL (14.0-18.0); IMM GRAN# 0.04 X1000 (0.0-0.04); IMM GRAN% 0.4 % (0.0-0.5); LYMPH# 0.92 X1000 (1.2-3.4); LYMPH% 9.8 % (20.5-51.1); MONO# 0.54 X1000 (0.11-0.59); MONO% 5.7 % (1.7-9.3); MPV 11.2 FL (7.4-10.4); NEUT% 83.2 % (42.2-75.2); PLT 72 X1000 (130-400); RBC 3.74 XMIL (4.7-6.1)
[2016-12-14 16:49] LABS: AGAP 13; ALBUMIN 3.3 g/dL (3.5-5.0); ALKALINE PHOSPHATASE 143 U/L (32-122); BUN 7 mg/dL (8-22); CALCIUM 8.2 mg/dL (8.8-10.2); CHLORIDE 101 mmol/L (98-107); CK PROFILE 74 U/L (24-204); COSMO 268; GOT 50 U/L (10-34); GPT 20 U/L (10-44); POTASSIUM 3.9 mmol/L (3.5-5.1); SODIUM 135 mmol/L (136-145); TCO2 21 mmol/L (25-35); TOTAL BILIRUBIN 2.58 mg/dL (0.20-1.00); TOTAL PROTEIN 6.8 g/dL (6.3-8.3)
[2016-12-14 17:44] LABS: INR 1.42; PROTIME 15.3 Seconds (9.2-11.7)
[2016-12-14 18:05] LABS: URINE CULTURE NEEDED? NO; URINE MICRO REVIEW NEEDED? NO; URINE SOURCE CLEAN CATCH
[2016-12-14 18:09] LABS: BILIRUBIN URINE NEGATIVE (NEGATIVE); BLOOD URINE NEGATIVE (NEGATIVE); COLOR YELLOW; GLUCOSE URINE NEGATIVE (NEGATIVE); LEUKOCYTES URINE NEGATIVE (NEGATIVE); NITRITE URINE NEGATIVE (NEGATIVE); PH URINE 8.5; PROTEIN URINE TRACE mg/dL (NEGATIVE); SP GRAVITY URINE 1.017; TURBIDITY URINE CLEAR (CLEAR); UROBILINOGEN URINE NORMAL (NORMAL)
[2016-12-14 18:10] LABS: UR EPITHELIAL CELLS <10 /HPF (<10); URINE BACTERIA NEGATIVE /HPF; URINE RBC <10 /HPF (<10); URINE WBC <10 /HPF (<10)
--- NOTE | 2016-12-14 18:59 | PROVIDER DOCUMENTATION ---
This chart was entered by Sonia Mendoza Scribe, acting as scribe for Nelson Inman MD. HPI-General Adult <Mateo Roland. - Last Filed: 12/14/16 20:57> - General Source: patient - History of Present Illness -Gen Adult Nature of Presenting Problems: 61 Y/O M presents to ED with General C/o. Pt c/o of pain and swelling in feet and legs x 2 weeks. C/o of fatigue, dizziness, and decreased appetite. Pt discharged from hospital two weeks ago. Pt has a hx of Alcoholism, and multiple G.I bleeds. States he has liver disease. States yesterday he worsened in feeling. Location of Pain/Injury: reports: generalized Pain Radiation: reports: no radiation Quality of Pain: reports: aching Severity: reports: moderate, severe Onset/Duration: reports: other (2 weeks ago) Timing: reports: still present, changing over time, getting worse Associated Symptoms: reports: dizziness, fatigue, fever/chills, weakness. denies: sinus congestion/drainage, nausea Similar Symptoms Previously?: No Recently seen or treated by another doctor?: Yes <Nelson Inman - Last Filed: 01/05/17 17:32> - General Chief Complaint: General Adult Stated Complaint: DIZZINESS, EXTREMITY SWELLING, THIGH PAIN Time Seen by Provider: 12/14/16 16:47 Allergies/Adverse Reactions: Patient Allergies Allergy/AdvReac Type Severity Reaction Status Date / Time ciprofloxacin [From Cipro] Allergy SWELLING Verified 12/26/16 08:31 metronidazole [From Flagyl] Allergy SWELLING Verified 12/26/16 08:31 Home Medications: Home Medication List Medication Instructions Recorded Confirmed Last Taken Type Multivit, Calc, Min/Folic Acid 267 mcg PO DAILY #30 tablet 11/26/16 12/26/1606/02 17:00 Rx [Ultra Freeda Tablet] Omeprazole [Prilosec] 40 mg PO BID #60 capsule. 11/26/16 12/26/16 12/25/16 17: 00 Rx Thiamine HCl [B-1] 100 mg PO DAILY 12/26/16 12/26/16 12/25/16 15:00 History Tramadol HCl [Ultram] 50 mg PO Q6H PRN #30 tablet 12/26/16 Unknown Rx Review of Systems - Adult - REVIEW OF SYSTEMS - ADULT ROS:: limited per condition Constitutional: reports: fever, fatique. denies: chills Eyes: reports: no symptoms reported Ears, Nose, Mouth & Throat: reports: no symptoms reported Cardiovascular: reports: edema. denies: chest pain, syncope Respiratory: denies: cough, shortness of breath Gastrointestinal: reports: poor appetite. denies: nausea Genitourinary: reports: no symptoms reported Musculoskeletal: reports: no symptoms reported Integumentary: reports: no symptoms reported Neurological: reports: dizziness/vertigo. denies: syncope Psychiatric: reports: no symptoms reported Endocrine: reports: no symptoms reported Hematologic/Lymphatic: reports: no symptoms reported Allergic/Immunologic: reports: no symptoms reported All Other Systems: Reviewed and Negative <Nelson Inman - Last Filed: 01/05/17 17:32> Past History - Adult - PAST MEDICAL HISTORY-ADULT Review of Records: reports: Old Records Reviewed, Nursing Assessment Review, Medications Reviewed, Social history reviewed & non-contributory. Major Childhood Illnesses: reports: denies history Cardiovascular: reports: denies history Respiratory: reports: denies history Gastrointestinal: reports: GERD, liver disease, other (cirrhosis, hernia) Obstetrical/Gynecological: reports: denies history Genitourinary: reports: denies history Musculoskeletal: reports: denies history Neurological: reports: denies history Endocrine/Immune: reports: denies history Other Conditions: reports: denies history - PRIOR SURGERIES/PROCEDURES Surgical/Procedure History: reports: other (head 1997) - IMMUNIZATION STATUS Childhood Immunizations: See Nurse Assessment Flu Vaccine: See Nurse Assessment <Nelson Inman - Last Filed: 01/05/17 17:32> Physical Exam-General - PHYSICAL EXAM-ADULT Initial Vital Signs Reviewed: Yes - CONSTITUTIONAL General Appearance: alert, no apparent distress - EYES Eyes: PERRL/EOMI, pink conjunctivae - HEAD, EARS, NOSE, MOUTH & THROAT HENMT: other (marked tongue). negative: moist mucous membranes - NECK Neck: non-tender, full range of motion, supple, normal inspection - RESPIRATORY Respiratory: chest non-tender, lungs clear, normal breath sounds - CARDIOVASCULAR Cardiovascular: regular rate, rhythm - GASTROINTESTINAL (ABDOMEN) Abdominal Exam: non tender, soft, other (umbilical hernia) - GENITOURINARY Male Genitalia: other (swollen testicles) - LYMPHATIC Lymphatic: no adenopathy - MUSCULOSKELETAL Back Exam: normal inspection, no CVA tenderness, no vertebral tenderness Extremity: non-tender, pedal edema Peripheral Pulses: radial (R): 3+, radial (L): 3+, carotid (R): 3+, carotid (L) : 3+, femoral (R): 3+, femoral (L): 3+, dorsalis-pedis (R): 3+, dorsalis-pedis ( L): 3+ - SKIN Integumentary: normal color, normal turgor - PSYCHIATRIC Psych/Mental Status: normal mood/affect, normal thought content, normal thought process, oriented x 3 <Nelson Inman - Last Filed: 01/05/17 17:32> Progress - PLAN OF CARE/RESULTS Progress/Plan/Lab Results: Vital Signs - 8 hr 12/14/16 13:59 12/14/16 18:20 12/14/16 19:35 Temperature 100.9 F H 100.1 F H Pulse Rate 75 88 Respiratory Rate 18 30 H Blood Pressure 129/56 88/51 O2 Sat by Pulse Oximetry 100 94 L Laboratory Results - last 24 hr 12/14/16 12/14/16 12/14/16 16:18 16:18 16:18 WBC 9.40 RBC 3.74 L Hgb 12.7 L Hct 37.4 L MCV 100.0 H MCH 34.0 H MCHC 34.0 RDW Std Deviation 16.0 H Plt Count 72 L MPV 11.2 H Immature Gran % (Auto) 0.4 Neut % (Auto) 83.2 H Lymph % (Auto) 9.8 L Beckham % (Auto) 5.7 Eos % (Auto) 0.7 Baso % (Auto) 0.2 Immature Gran # (Auto) 0.04 Neut # (Auto) 7.81 H Lymph # (Auto) 0.92 L Beckham # (Auto) 0.54 Eos # (Auto) 0.07 Baso # (Auto) 0.02 PT INR D-Dimer 13.29 H Sodium 135 L Potassium 3.9 Chloride 101 Carbon Dioxide 21 L Anion Gap 13 BUN 7 L Creatinine 0.8 Estimated GFR/1.73 m2 > 60 BUN/Creatinine Ratio 9 Glucose 91 Calculated Osmolality 268 Calcium 8.2 L Total Bilirubin 2.58 H AST 50 H ALT 20 Alkaline Phosphatase 143 H Ammonia Creatine Kinase 74 Troponin T Iyj-[id number]-Usmscvabjcd Pept Total Protein 6.8 Albumin 3.3 L Globulin 3.5 Albumin/Globulin Ratio 0.9 Plasma Lactate Urine Source Urine Color Urine Turbidity Urine pH Ur Specific Eliot Urine Protein Ur Glucose (Stick) Ur Ketones (Stick) Urine Blood Urine Nitrite Urine Bilirubin Urobilinogen Dipstick Urine Leukocytes Urine WBC (Auto) Urine RBC (Auto) U Epithel Cells (Auto) Urine Bacteria (Auto) 12/14/16 12/14/16 12/14/16 16:18 16:18 16:18 WBC RBC Hgb Hct MCV MCH MCHC RDW Std Deviation Plt Count MPV Immature Gran % (Auto) Neut % (Auto) Lymph % (Auto) Beckham % (Auto) Eos % (Auto) Baso % (Auto) Immature Gran # (Auto) Neut # (Auto) Lymph # (Auto) Beckham # (Auto) Eos # (Auto) Baso # (Auto) PT 15.3 H INR 1.42 D-Dimer Sodium Potassium Chloride Carbon Dioxide Anion Gap BUN Creatinine Estimated GFR/1.73 m2 BUN/Creatinine Ratio Glucose Calculated Osmolality Calcium Total Bilirubin AST ALT Alkaline Phosphatase Ammonia Creatine Kinase Troponin T < 0.010 Hqb-N-Ydieahzrlco Pept 381 H Total Protein Albumin Globulin Albumin/Globulin Ratio Plasma Lactate Urine Source Urine Color Urine Turbidity Urine pH Ur Specific Eliot Urine Protein Ur Glucose (Stick) Ur Ketones (Stick) Urine Blood Urine Nitrite Urine Bilirubin Urobilinogen Dipstick Urine Leukocytes Urine WBC (Auto) Urine RBC (Auto) U Epithel Cells (Auto) Urine Bacteria (Auto) 12/14/16 12/14/16 12/14/16 17:50 18:04 19:40 WBC RBC Hgb Hct MCV MCH MCHC RDW Std Deviation Plt Count MPV Immature Gran % (Auto) Neut % (Auto) Lymph % (Auto) Beckham % (Auto) Eos % (Auto) Baso % (Auto) Immature Gran # (Auto) Neut # (Auto) Lymph # (Auto) Beckham # (Auto) Eos # (Auto) Baso # (Auto) PT INR D-Dimer Sodium Potassium Chloride Carbon Dioxide Anion Gap BUN Creatinine Estimated GFR/1.73 m2 BUN/Creatinine Ratio Glucose Calculated Osmolality Calcium Total Bilirubin AST ALT Alkaline Phosphatase Ammonia 42 Creatine Kinase Troponin T Exm-P-Oszkikzmhes Pept Total Protein Albumin Globulin Albumin/Globulin Ratio Plasma Lactate 1.8 Urine Source CLEAN CATCH Urine Color YELLOW Urine Turbidity CLEAR Urine pH 8.5 Ur Specific Eliot 1.017 Urine Protein TRACE A Ur Glucose (Stick) NEGATIVE Ur Ketones (Stick) NEGATIVE Urine Blood NEGATIVE Urine Nitrite NEGATIVE Urine Bilirubin NEGATIVE Urobilinogen Dipstick NORMAL Urine Leukocytes NEGATIVE Urine WBC (Auto) <10 Urine RBC (Auto) <10 U Epithel Cells (Auto) <10 Urine Bacteria (Auto) NEGATIVE Orders Category Date Time Status ANGIOGRAM/PULMONARY ARTERIES [CT] Stat Exams 12/14/16 19:25 Completed CHEST-2 VIEWS [RAD] Stat Exams 12/14/16 14:43 Completed AMMONIA [CHEM] Stat Lab 12/14/16 18:04 Completed BC [BLOOD CULTURE] [BLDCUL] Stat Lab 12/14/16 15:33 Results CBC WITH ELECTRONIC DIFF [HEME] Stat Lab 12/14/16 16:18 Completed CK PROFILE [SP CHEM] Stat Lab 12/14/16 16:18 Completed COMPREHENSIVE METABOLIC PANEL [CHEM] Stat Lab 12/14/16 16:18 Completed D-DIMER [CHEM] Stat Lab 12/14/16 16:18 Completed LACTATE, PLASMA [CHEM] Stat Lab 12/14/16 19:40 Completed PRO B-NATRIURETIC PEPTIDE Stat Lab 12/14/16 16:18 Completed PROTIME WITH INR [COAG] Stat Lab 12/14/16 16:18 Completed ROUTINE CULTURE [RM] Stat Lab 12/14/16 20:29 Uncollected TROPONIN T Stat Lab 12/14/16 16:18 Completed UA NIMS W/REFLEX CULT [URINALYSIS] Stat Lab 12/14/16 17:50 Completed 0.9% Sodium Chloride Inj [Ns] 1,000 ml Med 12/14/16 19:28 Discontinued IV 999 mls/hr Acetaminophen [Tylenol] Med 12/14/16 19:28 Discontinued 1,000 mg PO NOW ONE CefOTAXIME [Claforan] 2 gm Med 12/14/16 21:00 Ordered 0.9% Sodium Chloride Inj [Ns] 100 ml IV Q8HR Lidocaine 1% [Xylocaine 1%] Med 12/14/16 20:30 Discontinued 20 ml INJ NOW ONE EKG [EKG] Stat Ther 12/14/16 14:43 Ordered Result Diagrams: 12/14/16 16:18 12/14/16 16:18 <Mateo Roland - Last Filed: 12/14/16 20:57> - PLAN OF CARE/RESULTS Progress/Plan/Lab Results: Vital Signs - 8 hr 12/14/16 13:59 Temperature 100.9 F H Pulse Rate 75 Respiratory Rate 18 Blood Pressure 129/56 O2 Sat by Pulse Oximetry 100 Laboratory Results - last 24 hr 12/14/16 12/14/16 12/14/16 16:18 16:18 16:18 WBC 9.40 RBC 3.74 L Hgb 12.7 L Hct 37.4 L MCV 100.0 H MCH 34.0 H MCHC 34.0 RDW Std Deviation 16.0 H Plt Count 72 L MPV 11.2 H Immature Gran % (Auto) 0.4 Neut % (Auto) 83.2 H Lymph % (Auto) 9.8 L Beckham % (Auto) 5.7 Eos % (Auto) 0.7 Baso % (Auto) 0.2 Immature Gran # (Auto) 0.04 Neut # (Auto) 7.81 H Lymph # (Auto) 0.92 L Beckham # (Auto) 0.54 Eos # (Auto) 0.07 Baso # (Auto) 0.02 PT INR D-Dimer 13.29 H Sodium 135 L Potassium 3.9 Chloride 101 Carbon Dioxide 21 L Anion Gap 13 BUN 7 L Creatinine 0.8 Estimated GFR/1.73 m2 > 60 BUN/Creatinine Ratio 9 Glucose 91 Calculated Osmolality 268 Calcium 8.2 L Total Bilirubin 2.58 H AST 50 H ALT 20 Alkaline Phosphatase 143 H Creatine Kinase 74 Troponin T Vkt-M-Cvhuvufmrge Pept Total Protein 6.8 Albumin 3.3 L Globulin 3.5 Albumin/Globulin Ratio 0.9 Urine Source 12/14/16 12/14/16 12/14/16 16:18 16:18 16:18 WBC RBC Hgb Hct MCV MCH MCHC RDW Std Deviation Plt Count MPV Immature Gran % (Auto) Neut % (Auto) Lymph % (Auto) Beckham % (Auto) Eos % (Auto) Baso % (Auto) Immature Gran # (Auto) Neut # (Auto) Lymph # (Auto) Beckham # (Auto) Eos # (Auto) Baso # (Auto) PT 15.3 H INR 1.42 D-Dimer Sodium Potassium Chloride Carbon Dioxide Anion Gap BUN Creatinine Estimated GFR/1.73 m2 BUN/Creatinine Ratio Glucose Calculated Osmolality Calcium Total Bilirubin AST ALT Alkaline Phosphatase Creatine Kinase Troponin T < 0.010 Zfu-S-Rnwlnkpndrn Pept 381 H Total Protein Albumin Globulin Albumin/Globulin Ratio Urine Source 12/14/16 17:50 WBC RBC Hgb Hct MCV MCH MCHC RDW Std Deviation Plt Count MPV Immature Gran % (Auto) Neut % (Auto) Lymph % (Auto) Beckham % (Auto) Eos % (Auto) Baso % (Auto) Immature Gran # (Auto) Neut # (Auto) Lymph # (Auto) Beckham # (Auto) Eos # (Auto) Baso # (Auto) PT INR D-Dimer Sodium Potassium Chloride Carbon Dioxide Anion Gap BUN Creatinine Estimated GFR/1.73 m2 BUN/Creatinine Ratio Glucose Calculated Osmolality Calcium Total Bilirubin AST ALT Alkaline Phosphatase Creatine Kinase Troponin T Mou-V-Kjkwbsndsmc Pept Total Protein Albumin Globulin Albumin/Globulin Ratio Urine Source CLEAN CATCH Orders Category Date Time Status CHEST-2 VIEWS [RAD] Stat Exams 12/14/16 14:43 Completed AMMONIA [CHEM] Stat Lab 12/14/16 18:04 Received BC [BLOOD CULTURE] [BLDCUL] Stat Lab 12/14/16 15:33 Results CBC WITH ELECTRONIC DIFF [HEME] Stat Lab 12/14/16 16:18 Completed CK PROFILE [SP CHEM] Stat Lab 12/14/16 16:18 Completed COMPREHENSIVE METABOLIC PANEL [CHEM] Stat Lab 12/14/16 16:18 Completed D-DIMER [CHEM] Stat Lab 12/14/16 16:18 Completed PRO B-NATRIURETIC PEPTIDE Stat Lab 12/14/16 16:18 Completed PROTIME WITH INR [COAG] Stat Lab 12/14/16 16:18 Completed TROPONIN T Stat Lab 12/14/16 16:18 Completed UA NIMS W/REFLEX CULT [URINALYSIS] Stat Lab 12/14/16 17:50 Results EKG [EKG] Stat Ther 12/14/16 14:43 Ordered Result Diagrams: 12/17/16 05:30 12/17/16 05:30 - CT/MRI 1 CT Study: Angiogram Impression: Normal CT Results: normal except ascites - CONSULTS/PCP/HOSPITALIST Notification #1 *Consult/PCP/Hospitalist*: Time Discussed: 20:31 Reason/Comments: Admit Consult Disposition: Admit (Admit Accepted) - CHANGE OF SHIFT REPORT (ED Provider) Report Given and Care Transferred to:: Dr Doll Time of Transfer: 19:03 Items Pending: Labs <Storm,Nelson H. - Last Filed: 01/05/17 17:32> Procedures - ADDITIONAL PROCEDURES Additional Procedure: Paracentesis Site Prep: Kit Utilized, Betadine Anesthetic: 1%, Lidocaine/Xylocaine Volume of Anesthetic (ml's): 10 Description of Procedure (Other): Removing fluid from ABD <Nelson Inman - Last Filed: 01/05/17 17:32> Departure - Departure Time of Disposition Decision: 20:57 Certified Medical Emergency: Emergent - Critical Care Note This patient required my direct & personal management of CC.: No <Mateo Roland - Last Filed: 12/14/16 20:57> - Departure Date of Disposition Decision: 12/17/16 Time of Disposition Decision: 20:58 Certified Medical Emergency: Emergent - Critical Care Note This patient required my direct & personal management of CC.: No <Nelson Inman - Last Filed: 01/05/17 17:32> - Departure DIAGNOSIS: Ascites, Febrile illness, acute Disposition: ADMITTED INPATIENT 09 Condition: Fair This chart was documented by the indicated scribe, (Sonia Mendoza Scribe) and accurately reflects the services I performed and decisions made by me, Nelson Inman MD, as attested by the provider's signature.
[2016-12-14] MEDS ORDERED: NS 1,000 ML IV ONE (19:28)
[2016-12-14] MEDS ORDERED: TYLENOL PO ONE (19:28)
--- NOTE | 2016-12-14 20:21 | Diag Imaging Result Doc PS360 ---
EXAM: ANGIOGRAM/PULMONARY ARTERIES HISTORY: fever TECHNIQUE: CT of the chest with intravenous contrast with reduced dose (clarity.) COMMENT: There are no filling defects in the pulmonary arteries. The aorta is not distended and there is no evidence of dissection. There is extensive coronary calcification. There is apparent thickening of the esophagus. This is particularly evident in the distal esophagus. There is marked ascites. There is a metallic suture other appliance in the cardia of the stomach. There is severe cirrhosis. There are apparent gastric varices. There is some atelectasis present in the left lower lobe. No acute pulmonary parenchymal disease is present. IMPRESSION: No evidence of pulmonary emboli. Cirrhosis with ascites. Portal hypertension and varices. The possibility of esophagitis cannot be excluded. Electronically signed by Manohar Edwards 12/14/2016 8:18 PM
[2016-12-14] MEDS ORDERED: XYLOCAINE 1% INJ ONE (20:30)
[2016-12-14] MEDS: CLAFORAN 2 GM in NS 100 ML IV SCH (21:53)
[2016-12-14] MEDS ORDERED: ZOFRAN IV PRN (22:46)
--- NOTE | 2016-12-15 02:35 | HISTORY AND PHYSICAL ---
CHIEF COMPLAINT: Abdominal pain and fevers. PRIMARY CARE PHYSICIAN: Dr. Ashutosh Mederos. HISTORY OF PRESENTING ILLNESS: A 61-year-old male with a history of alcoholic cirrhosis, hypertension, and rectal AVMs, who presented to the emergency department with a 2 weeks history of worsening abdominal pain and having fevers. He states that it seemed that his abdomen was getting more distended, and he was having intermittent fever throughout the week. He had presented to the emergency department, and it was suspected he possibly had a spontaneous bacterial peritonitis. Subsequently, a paracentesis was done by the ER physician, and ascitic fluid was sent for evaluation. At the time of my examination, he had denied any headache, visual changes, chest pain, shortness of breath, but complains of abdominal pain and having fevers. PAST MEDICAL HISTORY: Alcoholic cirrhosis, hypertension, rectal AVM. PAST SURGICAL HISTORY: None. ALLERGIES: Amoxicillin, ciprofloxacin, and metronidazole. CURRENT MEDICATIONS: As listed in the MAR. SOCIAL HISTORY: He is a former smoker. History of alcohol abuse. States he has quit. History of marijuana use. FAMILY HISTORY: No history of coronary disease. REVIEW OF SYSTEMS: Twelve point review of systems is as in HPI. Other systems negative. PHYSICAL EXAMINATION: GENERAL: Cooperative, friendly male. He is resting more comfortably now. VITAL SIGNS: Temperature 100.9 degrees, pulse 75, respirations 18, blood pressure 129/56. HEENT: Atraumatic, normocephalic. Extraocular movements intact. PERRLA. NECK: No masses. CHEST: Clear to auscultation. CARDIOVASCULAR: Regular rate and rhythm. ABDOMEN: Soft, distended, ascitic. EXTREMITIES: +1 edema. NEUROLOGIC: He is awake, alert, oriented x2. GENITOURINARY: No bladder distention. SKIN: Warm. LABORATORIES AND STUDIES: WBC 9.40, hemoglobin 12.7, hematocrit 37.4, platelets 72,000. Sodium 135, potassium 3.9, chloride 101, CO2 21, BUN is 7, creatinine 0.8, glucose is 91. Alkaline phosphatase of 143. ASSESSMENT: A 61-year-old male with a history of alcoholic cirrhosis, hypertension, had presented to the emergency department with a 1-week history of worsening abdominal pain and distention. He was evaluated in the ER, and it was suspected he had spontaneous bacterial peritonitis, and subsequently he will need hospitalization for further management. 1. Abdominal pain and fever. 2. Suspected spontaneous bacterial peritonitis. 3. Alcoholic cirrhosis. 4. Hypertension. PLAN: 1. We will admit patient to medical floor with telemetry. 2. We will give patient adequate pain control and antiemetics. 3. We will start patient on IV antibiotics. 4. Consult Gastroenterology. 5. Monitor blood pressure closely. 6. Put patient on DVT prophylaxis with SCDs. 7. Continue to follow and reassess. cc: Franco Flynn MD
[2016-12-15 04:12] LABS: DIFF NEEDED? YES; WBC BF 203 /cumm
[2016-12-15 04:26] LABS: MONOS 63 %; POLYS 37 %
[2016-12-15 05:24] LABS: MANUAL DIFF NEEDED? NO
[2016-12-15 06:00] LABS: BASO% 0.3 % (0.0-0.8); EOS# 0.17 X1000 (0.0-0.7); EOS% 2.7 % (0.0-10.0); HEMATOCRIT 28.4 % (42.0-52.0); HEMOGLOBIN 9.4 g/dL (14.0-18.0); LYMPH# 1.27 X1000 (1.2-3.4); LYMPH% 20.5 % (20.5-51.1); MCH 33.3 PG (27-31); MCHC 33.1 g/dL (33-37); MCV 100.7 FL (81-99); MONO# 0.57 X1000 (0.11-0.59); MONO% 9.2 % (1.7-9.3); MPV 10.8 FL (7.4-10.4); NEUT% 67.3 % (42.2-75.2); PLT 46 X1000 (130-400); RBC 2.82 XMIL (4.7-6.1)
[2016-12-15 06:07] LABS: AGAP 11; BUN 8 mg/dL (8-22); CALCIUM 7.3 mg/dL (8.8-10.2); CHLORIDE 108 mmol/L (98-107); COSMO 273; POTASSIUM 3.7 mmol/L (3.5-5.1); SODIUM 138 mmol/L (136-145); TCO2 19 mmol/L (25-35)
[2016-12-15] MEDS: CLAFORAN 2 GM in NS 100 ML IV SCH (06:24)
[2016-12-15] MEDS: THERA M PLUS PO SCH (08:56)
[2016-12-15] MEDS: PRILOSEC PO SCH ×2 (08:56→21:16)
[2016-12-15] MEDS: ROCEPHIN 2 GM/NS 2 GM/50 ML IVPB IV SCH (10:49)
--- NOTE | 2016-12-15 13:15 | PROGRESS NOTE ---
DATE: 12/15/2016 SUBJECTIVE: The patient is feeling much better today. He denies having any fever or chills. The patient came to the hospital, although denies having any vomiting or diarrhea. The patient denies having had paracentesis in the past. He stated last night was his first time. OBJECTIVE: Vital signs: Blood pressure 106/59, pulse of 70, respirations 18, temperature 98.1 degrees, satting 100% on room air. General appearance: Well-developed, thin white male in no acute distress. AAO x3. HEENT: Anicteric sclerae. Clear conjunctivae. Neck: Supple. No JVD. No bruit. Cardiovascular: S1, S2. Normal rate and rhythm. No murmur, rubs, or gallops. Pulmonary: Clear to auscultation bilaterally. GI: Soft, mildly tender to palpation. Positive fluid weight, but normoactive bowel sounds. Lower extremity: No clubbing, but 1+ edema, no cyanosis. LABS AND X-RAYS: White count 6.2, hemoglobin 9.4, hematocrit 28.4, platelets 46. Chemistry: Sodium of 138, potassium 3.7, chloride 108, bicarbonate 19, creatinine 0.7, BUN [address] glucose of [address] CT angiogram showed no pulmonary embolus, no evidence of pneumonia, just cirrhosis with ascites. ASSESSMENT AND PLAN: This is a 61 year admitted to the hospital for unknown fever: 1. Fever. The patient had the paracenteses. Has absolute neutrophil count less than 100. I do not believe the patient is having spontaneous bacterial peritonitis, but will keep him on ceftriaxone for now, and we will monitor his temperature. His UA is normal. Chest x-ray is normal. So far, we do not have a source of his fever. 2. Thrombocytopenia, probably secondary to his cirrhosis of the liver. 3. History of alcohol abuse. The patient has not had alcohol for over 2 years. Will continue to monitor the patient in-house for another day. If he continues to do well, remains afebrile, we will consider to discharge the patient home then.
--- NOTE | 2016-12-15 19:06 | CONSULTATION ---
DATE OF CONSULTATION: 12/15/2016 INDICATION FOR CONSULTATION: Abdominal pain. REFERRING PHYSICIAN: Dr. Logan Griffith M.D. HISTORY OF PRESENT ILLNESS: The patient is a 61-year-old, white male who is well known to our service. He has a longstanding history of alcohol abuse and has had multiple GI bleeds in the past. In June 2015, he was admitted with hematemesis, melena, thrombocytopenia, alcohol abuse and NSAID use. He underwent EGD on 06/20/2015. He was found to have a small to medium varices, grade C erosive esophagitis, hiatal hernia, gastric ulcer and a hiatal hernia sac ulcer with a visible vessel and adherent clot. He also had an acute Barbie-Sanford tear, gastritis and severe duodenitis. There was a 2nd gastric ulcer in the antrum, as well as one in the body. He was treated with Carafate and Protonix with interval improvement. He was discharged to home but began consuming alcohol again on a regular basis. His clinical course was complicated by a seizure. He was subsequently admitted with hematemesis and syncope on 12/21/2015. On 2015, he was found to have large esophageal varices, Schatzki's ring, hiatal hernia, portal gastropathy, nonbleeding AVMs and Endoclip in his fundus from his previous GI bleed. In addition, he had nonbleeding gastric AVMs, duodenitis and duodenal arteriovenous malformations. He was once again treated with 12 week course of Carafate and PPI therapy. He was also placed on Nadolol. The patient did well until November of 2016 when he was admitted with weakness, nausea and melenic stools. He underwent EGD that was negative for a bleeding source. He was noted to have hemorrhagic gastritis but no active bleeding source. We subsequently performed a colonoscopy that revealed actively bleeding colonic and transverse colon AVM's, nonspecific colitis, multiple nonbleeding AVMs, diverticulosis, internal hemorrhoids and external hemorrhoids. He was also noted to have nonbleeding rectal AVMs. He was discharged to home on a 10 day course of Augmentin. Unfortunately, he had an allergic reaction to the Augmentin and was subsequently placed on Cipro and Flagyl. He subsequently had a reaction to Cipro and Flagyl. However, he completes the course of antibiotics. The patient states that he was doing well until approximately two weeks prior to admission when he began to have abdominal distention and reports subjective fevers at home. He reports that his abdomen was becoming progressively more distended. He describes intermittent fever. He reports that his pain is not from his GI tract but rather from his umbilical hernia which has become intermittently tender initially. He reports that the umbilical hernia now hurts on a daily basis. Because of his fever, he underwent a paracentesis in the emergency room which has been analyzed. The fluid analysis is negative for spontaneous bacterial peritonitis. It is consistent with uncomplicated ascites secondary to alcoholic liver disease and cirrhosis. Currently, his main concerns are his bilateral lower extremity edema, fever and weakness. He denies chest pain, shortness of breath, nausea with vomiting, and body aches. He states that at home he has been eating well. Since his last admission, he has even stopped smoking on a regular basis. He remains abstinent from alcohol and overall thought that he was doing better until his legs began to swell. PAST MEDICAL HISTORY: 1. Alcohol liver disease. 2. Cirrhosis with portal hypertension. 3. Systolic hypertension. 4. GI bleed. 5. Esophageal varices. 6. Reflux esophagitis. 7. Peptic ulcer disease. 8. Right upper extremity cellulitis in 2012. 9. Recurrent hyponatremia from beer potomania. 10. Thrombocytopenia. 11. Fatty liver. 12. Hepatosplenomegaly. 13. Recurrent headaches. 14. Recurrent NSAID use. 15. Recurrent gastric ulcers. 16. Hiatal hernia. 17. Actively bleeding colonic AVMs. 18. Diverticulosis. 19. Hemorrhoids. 20. Nonbleeding duodenal, colonic and rectal AVMs. 21. Umbilical hernia. PAST SURGICAL HISTORY: 1. Bone marrow biopsy. 2. Metal plate in the scalp secondary to a traumatic injury. SOCIAL HISTORY: The patient is single with no children. He previously drank between 6-12 beers per day on average. He reduced his intake to 3-6 beers per day in 2016. He stopped drinking beer at the beginning of 2016. He has used marijuana in the past based on his tox screen. He was previously smoking 1/2 pack per day for more than 20 years. He states that he stopped smoking since his last admission in November 2016. MEDICATION ALLERGIES: 1. Amoxicillin. 2. Ciprofloxacin. 3. Flagyl. 4. Potassium clavulanate. HOME MEDICATIONS: 1. Omeprazole. 2. Multivitamin. REVIEW OF SYSTEMS: As noted above. PHYSICAL EXAMINATION: On exam, he is in no acute distress but resting comfortably in his bed. His blood pressure is 110/62, pulse is 66, respiration 18, temperature of 98.4 degrees.HEENT: Negative for jaundice. His oropharyngeal mucosal membranes are dry. Pulmonary : Lungs are clear to auscultation with normal respiratory effort. Cardiovascular Exam: Reveals regular rate and rhythm with no gallops or rubs. Abdominal Exam: Reveals normoactive bowel sounds. The abdomen is soft, but distended. He has obvious ascites which has been previously confirmed on ultrasound. Extremities: Bilaterally are remarkable for 1 to 2+ edema which is new since his last clinic visit. Neurologic: He is alert and oriented x3 with no evidence of hepatic encephalopathy. OBJECTIVE DATA: Reveals a hemoglobin of 9.4 with hematocrit of 28.4, and a white count of 6.20. He has 46,000 platelets. His sodium is 138, potassium 3.7, chloride 108, CO2 19 , BUN 8, creatinine 0.7 with a glucose of 79. Calcium is 7.3. On 12/14/2016, his PT was 15.3 with an INR of 1.42 and a D-dimer of 13.29. His pulmonary angiogram was negative for pulmonary embolus. It was remarkable for cirrhosis, esophageal and gastric varices and ascites. His liver function tests on 12/14/2016 reveal a total bilirubin of 2.58, AST of 50, ALT of 20, alkaline phosphatase of 143, total protein 6.8, and albumin 3.3. On labs, his CRP is 21.48. IMPRESSION: 1. Abdominal pain at the level of the umbilical hernia. 2. Cirrhosis. 3. Portal hypertension. 4. Known alcohol liver disease. 5. Known varices. RECOMMENDATION: 1. The patient states that he feels significantly better from a GI standpoint. However, he notes tenderness around his umbilicus. His labs are suggestive of progression of his liver disease. However, he would like to meet with a surgeon to discuss the possibilities of repairing his umbilical hernia. Therefore, I will consult Dr. Magnus Godoy for evaluation. I am doubtful that he is a suitable candidate at this time and may need a tune up before surgery can be considered. Overall, he is a reasonable candidate for surgery in the future. 2. On his pulmonary angiogram, the patient had evidence of portal hypertension with esophageal and gastric varices. He was also noted to have thickening of the esophagus suggestive of esophagitis. Therefore, I would continue his omeprazole as he is clinically asymptomatic. 3. The patient had acute colitis on his previous endoscopy. Unfortunately, he had elevated PT with an INR and an abnormally low platelet that prevented a biopsy. He was placed empirically on antibiotics but has had adverse reactions to Augmentin, Cipro and Flagyl. Therefore, I would monitor his stool output and consider antibiotics if it remains persistently elevated, or he has copious amounts of diarrhea. 4. Because of the colitis, I would check an IBD profile. I would also send stool for lactoferrin and calprotectin. 5. Additional recommendations to follow based on clinical course. cc: MD Dr. Andrea Still
[2016-12-16] MEDS: ROCEPHIN 2 GM/NS 2 GM/50 ML IVPB IV SCH (09:07)
[2016-12-16] MEDS: THERA M PLUS PO SCH (09:07)
[2016-12-16] MEDS: PRILOSEC PO SCH ×2 (09:08→22:06)
--- NOTE | 2016-12-16 12:08 | PROGRESS NOTE ---
DATE: 12/16/2016 SUBJECTIVE: The patient is doing well. Still having mild abdominal pain but no fever. OBJECTIVE: Vital signs: Blood pressure 104/64, pulse of 52,respirations 18, temperature 97.6 degrees, saturation of 99% room air. General appearance: Well developed white male in no acute distress. N HEENT: Anicteric sclerae. Clear conjunctivae. Neck: Supple. No JVD. No bruit. Cardiovascular: S1, S2 normal rate and rhythm. Slightly bradycardic. Pulmonary: Clear to auscultation bilaterally with mild crackles at the bases. GI: Soft, slightly distended. Positive for fluid weight. Ascites noticed. Extremities: No clubbing, cyanosis, 1+ pitting edema. LABORATORY: No lab work ordered for today, will order for tomorrow. ASSESSMENT AND PLAN: This is a 61-year-old, white male with a history of cirrhosis of the liver admitted for fever. 1. Fever of unknown origin. At this point I do not believe the patient has bacterial peritonitis, but we will keep him on ceftriaxone for now until all the cultures finalized. 2. Thrombocytopenia, probably secondary to his cirrhosis of the liver. 3. History of alcohol abuse. He denies having any alcohol for the past 2 years. 4. We will monitor the patient in-house for another day. If blood cultures remain negative tomorrow, we will discharge the patient home then.
--- NOTE | 2016-12-16 19:49 | CONSULTATION ---
DATE OF CONSULTATION: 12/16/2016 REASON FOR CONSULTATION: Umbilical hernia. HISTORY OF PRESENT ILLNESS: This is a 61-year-old male with cirrhosis secondary to alcohol abuse. He reports his last drink was in April or May of last year. He was admitted 3 days ago with abdominal pain and fever. Workup so far has been unrevealing for the fever. He has had paracentesis. That fluid was negative. His blood cultures are negative after 48 hours. His white blood cell count is normal. He had a pulmonary arteriogram, which was also negative for any thoracic source of fever. He does have some portal hypertension, varices, cirrhosis and ascites. He complains of pain around his umbilicus. He has had worsening pain over the last month or so. He says the hernia that he knows about has been there for about a year. It seems to be getting bigger. It is worse when he is straining, coughing, lifting. It is less when he lies down and relaxes. He also wears an abdominal binder to help control the hernia. PAST MEDICAL HISTORY: Cirrhosis, hypertension, multiple GI bleed secondary to AVMs and ulcers. PAST SURGICAL HISTORY: None. ALLERGIES: Amoxicillin, ciprofloxacin, metronidazole. SOCIAL HISTORY: He is a former smoker. He has a history of alcohol abuse and marijuana use. FAMILY HISTORY: Reviewed and unremarkable. CURRENT MEDICATIONS: Rocephin, Prilosec, Zofran, multivitamin. Home medications: Prilosec, ciprofloxacin, Flagyl and multivitamin. REVIEW OF SYSTEMS: Ten systems reviewed negative except as noted above. PHYSICAL EXAM: Vital Signs: Temperature 98, pulse 68, respirations 20, blood pressure 111/67. General: Well-developed male in no distress. He looks his stated age. HEENT: Normocephalic, atraumatic. Extraocular muscles intact. Pupils equal, round, reactive to light. Sclerae anicteric. Moist mucous membranes. Neurologic: He is alert and oriented x4. His cranial nerves are grossly intact. He moves all extremities equally and well. Neck: Supple. No thyromegaly. CV: Regular rate and rhythm. Respiratory: Bilateral equal breath sounds. GI: Soft, protuberant. There is a fluid wave. He is nontender, nondistended. No organomegaly or mass. He does have a reducible umbilical hernia, perhaps 1 cm in size. Extremities: No clubbing, cyanosis, or edema. Skin: Warm and dry. No rash. Musculoskeletal: Moves all extremities equally and well. LABORATORY: White blood cell count 6.2 hemoglobin 9.4, platelet count 46. INR 1.4. Sodium 138, potassium 3.7, chloride 108, CO2 of 19, BUN 8, creatinine 0.7, glucose 79, calcium 7.3. Urinalysis is negative. ASSESSMENT AND PLAN: A 61-year-old male with reducible umbilical hernia. This is symptomatic. His Child-Phelan classification is class B. I think he is a suitable candidate for repair and this would be done better sooner rather than later. He is agreeable to this but I do think he can be discharged home today. We can set this up as an outpatient next week. He can follow up with me in my office on Monday. cc: Ranjit Arzate MD
[2016-12-17 05:56] LABS: MANUAL DIFF NEEDED? NO
[2016-12-17 06:34] LABS: AGAP 9; BUN 7 mg/dL (8-22); CALCIUM 7.7 mg/dL (8.8-10.2); CHLORIDE 107 mmol/L (98-107); COSMO 275; POTASSIUM 4.1 mmol/L (3.5-5.1); SODIUM 139 mmol/L (136-145); TCO2 23 mmol/L (25-35)
[2016-12-17 06:47] LABS: BASO% 0.7 % (0.0-0.8); EOS# 0.42 X1000 (0.0-0.7); EOS% 10.2 % (0.0-10.0); HEMATOCRIT 29.6 % (42.0-52.0); HEMOGLOBIN 9.8 g/dL (14.0-18.0); IMM GRAN# 0.03 X1000 (0.0-0.04); IMM GRAN% 0.7 % (0.0-0.5); LYMPH# 1.09 X1000 (1.2-3.4); LYMPH% 26.5 % (20.5-51.1); MCH 33.1 PG (27-31); MCHC 33.1 g/dL (33-37); MONO# 0.47 X1000 (0.11-0.59); MONO% 11.4 % (1.7-9.3); MPV 10.8 FL (7.4-10.4); NEUT% 50.5 % (42.2-75.2); PLT 59 X1000 (130-400); RBC 2.96 XMIL (4.7-6.1)
[2016-12-17 07:44] VITALS: BP 109/71
[2016-12-17] MEDS: THERA M PLUS PO SCH (08:29)
[2016-12-17] MEDS: PRILOSEC PO SCH (08:29)
[2016-12-17] MEDS: ROCEPHIN 2 GM/NS 2 GM/50 ML IVPB IV SCH ×2 (08:29→08:58)
--- NOTE | 2016-12-17 16:12 | DISCHARGE SUMMARY ---
ADMISSION DATE: 12/14/2016 DISCHARGE DATE: 12/17/2016 PRIMARY CARE PHYSICIAN: Dr. Ashutosh Mederos. DISCHARGE DIAGNOSES: 1. Fever of unknown origin. 2. Ascites. 3. History of alcohol abuse. 4. Hiatal hernia. 5. Hypertension. DISCHARGE MEDICATIONS: 1. Prilosec 40 mg b.i.d.. 2. Multivitamin one tablet p.o. daily. 3. Discontinue his Cipro and Flagyl. The patient does not need any more antibiotics. CONSULTATIONS: 1. Gastroenterology was consulted and Dr. Vargas saw the patient and recommended general surgery to look at his hernia. 2. Dr. Arzate saw the patient and recommended outpatient hernia repair. HOSPITAL COURSE: The patient is a 61-year-old white male admitted to the hospital for fever of unknown origin. The patient has ascites and it was tapped in the E.R. and he has an absolute white count of less than 100. The patient does not meet the criteria for spontaneous bacterial peritonitis. The patient did not have any recurrent paracenteses. He stated that he has only had 1 paracentesis and that was done during this admission in the Emergency Room. The patient remained afebrile throughout the entire course of this admission. We kept him on Rocephin. Cultures have remained negative thus far. There is nothing else in the hospital that we can do for the patient. He is doing well and tolerating p.o. good without any difficulties. Dr. Arzate will see him in the office and schedule him for the hernia repair. Overall he is doing well and we will discharge the patient home. PHYSICAL EXAMINATION AT DISCHARGE: Vital Signs: Blood pressure is 109/71, pulse 70, respirations 16, temperature 98.6, and saturation 98% on room air. General Appearance: Thin white male in no acute distress. HEENT: Anicteric. Clear conjunctivae. Neck: Supple. No JVD. No bruit. Cardiovascular: S1, S2, normal rate and rhythm. No murmurs, rubs, or gallops. Pulmonary: Clear to auscultation bilaterally. GI: Mildly distended with a fluid wave. Extremities: No clubbing, cyanosis, or edema. LABORATORY DATA: At discharge white count is 4.12, hemoglobin 9.9, hematocrit 29.6, and platelets 59. Chemistry: Sodium 139, potassium 4.1, chloride 107, bicarb 23, BUN 7, creatinine 0.7, glucose 275. PLAN: We will discharge the patient home. CONDITION: Stable and improving. ACTIVITY: As tolerated. FOLLOW UP: The patient is to follow up with his PCP in 1-2 weeks. TIME SPENT: Total time discharging this patient was 35 minutes.
--- NOTE | 2017-01-05 14:38 | ED EKG INTERP ---
This chart was entered by Harriet Gonzalez Scribe, acting as scribe for Tyler Hampton MD. EKG Interpretation - EKG Time of EKG reading by physician:: 16:12 EKG Read and Signed by:: Tyler Hampton EKG Interpretation (*Must complete 3 of following elements*): Normal Rate: 68 Rhythm: normal sinus rhythm Comments: normal ECG This chart was documented by the indicated scribe, (Harriet Gonzalez Scribe) and accurately reflects the services I performed and decisions made by Berta ervin Christophe I, MD, as attested by the provider's signature.
== END 2016-12-17 13:04 | disposition home or self-care (01) ==
LOC: ED 13:34 → SUATTDRO 22:13 → 4N 22:13
PROVIDERS: ATTEND Internal Medicine

== ENCOUNTER 2017-03-24 16:37 | Inpatient (IN) ==
[2017-03-24] MEDS ORDERED: NS 1,000 ML IV ONE (17:36)
[2017-03-24 18:11] LABS: MANUAL DIFF NEEDED? NO
[2017-03-24 18:25] LABS: BASO% 0.5 % (0.0-0.8); EOS% 0.9 % (0.0-10.0); HEMATOCRIT 24.6 % (42.0-52.0); HEMOGLOBIN 8.1 g/dL (14.0-18.0); IMM GRAN# 0.04 X1000 (0.0-0.04); IMM GRAN% 0.4 % (0.0-0.5); LYMPH% 22.7 % (20.5-51.1); MCH 32.5 PG (27-31); MCHC 32.9 g/dL (33-37); MCV 98.8 FL (81-99); MONO# 0.99 X1000 (0.11-0.59); MPV 11.2 FL (7.4-10.4); NEUT% 66.5 % (42.2-75.2); PLT 84 X1000 (130-400); RBC 2.49 XMIL (4.7-6.1)
[2017-03-24 18:26] LABS: INR 1.55; PROTIME 16.7 Seconds (9.2-11.7); PTT 28.3 Seconds (22.0-36.0)
[2017-03-24 18:32] LABS: AGAP 17; ALBUMIN 2.6 g/dL (3.5-5.0); ALKALINE PHOSPHATASE 118 U/L (32-122); BUN 36 mg/dL (8-22); CALCIUM 9.8 mg/dL (8.8-10.2); CHLORIDE 106 mmol/L (98-107); COSMO 303; GOT 47 U/L (10-34); GPT 25 U/L (10-44); MAGNESIUM 1.7 mg/dL (1.5-2.7); POTASSIUM 3.7 mmol/L (3.5-5.1); SODIUM 148 mmol/L (136-145); TCO2 25 mmol/L (25-35); TOTAL BILIRUBIN 1.45 mg/dL (0.20-1.00); TOTAL PROTEIN 5.5 g/dL (6.3-8.3)
[2017-03-24] MEDS ORDERED: D5 1/2 NS 1,000 ML IV ONE (18:57)
[2017-03-24] MEDS ORDERED: THIAMINE 100 MG in NS 50 ML IV ONE (19:30)
[2017-03-24] MEDS ORDERED: VITAMIN K 10 MG in NS 50 ML IV ONE (20:00)
[2017-03-24] MEDS ORDERED: ZOFRAN IV PRN (20:09)
[2017-03-24] MEDS ORDERED: LACTULOSE PO SCH (21:00)
[2017-03-24] MEDS ORDERED: XIFAXAN PO SCH (21:00)
[2017-03-24] MEDS ORDERED: FLAGYL 500 MG/NS 500 MG/100 ML IVPB IV SCH (21:00)
[2017-03-24] MEDS: POTASSIUM CHLORIDE 20 MEQ, MAGNESIUM SULFATE 2 GM, THIAMINE 100 MG, FOLIC ACID 1 MG, M.... IV SCH ×6 (22:10)
[2017-03-24] MEDS: SANDOSTATIN 500 MICROGM in D5W 100 ML IV SCH (22:12)
[2017-03-24] MEDS: PROTONIX 80 MG in NS 80 ML IV SCH (23:36)
[2017-03-25 00:42] LABS: HEMATOCRIT 15.3 % (42.0-52.0)
[2017-03-25 02:01] LABS: URINE CULTURE NEEDED? NO; URINE MICRO REVIEW NEEDED? NO; URINE SOURCE CATH
[2017-03-25 02:04] LABS: BILIRUBIN URINE NEGATIVE (NEGATIVE); BLOOD URINE NEGATIVE (NEGATIVE); COLOR YELLOW; GLUCOSE URINE NEGATIVE (NEGATIVE); LEUKOCYTES URINE NEGATIVE (NEGATIVE); NITRITE URINE NEGATIVE (NEGATIVE); PROTEIN URINE NEGATIVE (NEGATIVE); SP GRAVITY URINE 1.025; TURBIDITY URINE CLEAR (CLEAR); UROBILINOGEN URINE NORMAL (NORMAL)
[2017-03-25 02:05] LABS: UR EPITHELIAL CELLS <10 /HPF (<10); URINE BACTERIA NEGATIVE /HPF; URINE RBC <10 /HPF (<10); URINE WBC <10 /HPF (<10)
[2017-03-25] MEDS: D5 1/2 NS 1,000 ML IV SCH ×5 (05:47→23:44)
[2017-03-25] MEDS: LACTULOSE PO SCH ×4 (06:20→21:14)
[2017-03-25] MEDS: SANDOSTATIN 500 MICROGM in D5W 100 ML IV SCH ×2 (06:20→16:22)
[2017-03-25] MEDS ORDERED: LASIX IV SCH (07:15)
[2017-03-25 07:19] LABS: MANUAL DIFF NEEDED? NO
[2017-03-25 07:41] LABS: BASO% 0.5 % (0.0-0.8); EOS# 0.16 X1000 (0.0-0.7); EOS% 2.1 % (0.0-10.0); HEMATOCRIT 18.8 % (42.0-52.0); HEMOGLOBIN 6.1 g/dL (14.0-18.0); IMM GRAN# 0.03 X1000 (0.0-0.04); IMM GRAN% 0.4 % (0.0-0.5); LYMPH# 2.16 X1000 (1.2-3.4); LYMPH% 27.8 % (20.5-51.1); MCH 31.3 PG (27-31); MCHC 32.4 g/dL (33-37); MCV 96.4 FL (81-99); MONO# 0.87 X1000 (0.11-0.59); MONO% 11.2 % (1.7-9.3); MPV 10.1 FL (7.4-10.4); PLT 52 X1000 (130-400); RBC 1.95 XMIL (4.7-6.1)
[2017-03-25 07:48] LABS: INR 1.47; PROTIME 15.8 Seconds (9.2-11.7)
[2017-03-25 08:01] LABS: AGAP 11; ALBUMIN 2.5 g/dL (3.5-5.0); ALKALINE PHOSPHATASE 74 U/L (32-122); BUN 35 mg/dL (8-22); CALCIUM 8.6 mg/dL (8.8-10.2); CHLORIDE 111 mmol/L (98-107); COSMO 302; GOT 48 U/L (10-34); GPT 23 U/L (10-44); POTASSIUM 4.6 mmol/L (3.5-5.1); SODIUM 147 mmol/L (136-145); TCO2 25 mmol/L (25-35); TOTAL BILIRUBIN 1.09 mg/dL (0.20-1.00); TOTAL PROTEIN 4.9 g/dL (6.3-8.3)
[2017-03-25] MEDS: PROTONIX 80 MG in NS 80 ML IV SCH ×2 (09:55→21:14)
[2017-03-25] MEDS: NS 500 ML IV SCH (12:36)
[2017-03-25 12:45] LABS: HEMATOCRIT 22.6 % (42.0-52.0); HEMOGLOBIN 7.7 g/dL (14.0-18.0)
[2017-03-25] MEDS: POTASSIUM CHLORIDE 20 MEQ, MAGNESIUM SULFATE 2 GM, THIAMINE 100 MG, FOLIC ACID 1 MG, M.... IV SCH ×6 (21:14)
[2017-03-25 22:28] LABS: MANUAL DIFF NEEDED? NO
[2017-03-25 22:39] LABS: INR 1.38; PROTIME 14.8 Seconds (9.2-11.7)
[2017-03-25 22:43] LABS: BASO% 0.5 % (0.0-0.8); EOS# 0.38 X1000 (0.0-0.7); EOS% 4.1 % (0.0-10.0); HEMATOCRIT 28.8 % (42.0-52.0); HEMOGLOBIN 9.6 g/dL (14.0-18.0); IMM GRAN# 0.05 X1000 (0.0-0.04); IMM GRAN% 0.5 % (0.0-0.5); LYMPH# 1.79 X1000 (1.2-3.4); LYMPH% 19.5 % (20.5-51.1); MCH 30.9 PG (27-31); MCHC 33.3 g/dL (33-37); MCV 92.6 FL (81-99); MPV 10.5 FL (7.4-10.4); NEUT% 63.4 % (42.2-75.2); PLT 63 X1000 (130-400); RBC 3.11 XMIL (4.7-6.1)
[2017-03-25] MEDS ORDERED: MISC. PHARMACY COMMUNICATION SCH (23:30)
[2017-03-25] MEDS ORDERED: NS PR ONE (23:45)
[2017-03-25] MEDS ORDERED: [UNRECOGNIZED DRUG - OTHER] PR ONE (23:45)
[2017-03-26] MEDS ORDERED: LACTULOSE MISC ONE ×3 (00:15→08:00)
[2017-03-26] MEDS ORDERED: STERILE WATER MISC ONE ×3 (01:00→08:00)
[2017-03-26 01:15] LABS: HEMATOCRIT 26.2 % (42.0-52.0); HEMOGLOBIN 8.9 g/dL (14.0-18.0)
[2017-03-26] MEDS: SANDOSTATIN 500 MICROGM in D5W 100 ML IV SCH ×2 (03:07→12:47)
[2017-03-26 03:55] LABS: HEMATOCRIT 26.7 % (42.0-52.0)
[2017-03-26] MEDS ORDERED: [UNRECOGNIZED DRUG - OTHER] PR ONE ×2 (04:00→08:00)
[2017-03-26] MEDS ORDERED: NS PR ONE ×2 (04:00→08:00)
[2017-03-26] MEDS: PROTONIX 80 MG in NS 80 ML IV SCH ×2 (05:19→16:02)
[2017-03-26] MEDS: D5 1/2 NS 1,000 ML IV SCH ×3 (07:38→20:52)
[2017-03-26 09:09] LABS: AGAP 9; ALKALINE PHOSPHATASE 80 U/L (32-122); BUN 17 mg/dL (8-22); CALCIUM 7.7 mg/dL (8.8-10.2); CHLORIDE 111 mmol/L (98-107); COSMO 288; GOT 73 U/L (10-34); GPT 30 U/L (10-44); MAGNESIUM 2.2 mg/dL (1.5-2.7); POTASSIUM 3.6 mmol/L (3.5-5.1); SODIUM 143 mmol/L (136-145); TCO2 23 mmol/L (25-35); TOTAL BILIRUBIN 2.21 mg/dL (0.20-1.00); TOTAL PROTEIN 5.5 g/dL (6.3-8.3)
[2017-03-26] MEDS: LACTULOSE PO SCH ×2 (09:48→21:00)
[2017-03-26 12:00] LABS: MANUAL DIFF NEEDED? NO
[2017-03-26 12:01] LABS: FREE T4 0.76 ng/dL (0.93-1.70)
[2017-03-26 12:05] LABS: BASO% 0.6 % (0.0-0.8); EOS# 0.28 X1000 (0.0-0.7); EOS% 4.2 % (0.0-10.0); HEMOGLOBIN 9.3 g/dL (14.0-18.0); IMM GRAN# 0.02 X1000 (0.0-0.04); IMM GRAN% 0.3 % (0.0-0.5); LYMPH# 1.41 X1000 (1.2-3.4); LYMPH% 21.2 % (20.5-51.1); MCH 30.5 PG (27-31); MCHC 33.2 g/dL (33-37); MCV 91.8 FL (81-99); MONO# 0.61 X1000 (0.11-0.59); MONO% 9.2 % (1.7-9.3); MPV 10.1 FL (7.4-10.4); NEUT% 64.5 % (42.2-75.2); PLT 61 X1000 (130-400); RBC 3.05 XMIL (4.7-6.1)
[2017-03-26 12:11] LABS: INR 1.43; PROTIME 15.4 Seconds (9.2-11.7)
[2017-03-26] MEDS: NS 500 ML IV SCH (12:26)
[2017-03-26 15:37] LABS: HEMATOCRIT 26.5 % (42.0-52.0); HEMOGLOBIN 8.8 g/dL (14.0-18.0)
[2017-03-26 15:45] LABS: INR 1.31; PTT 26.5 Seconds (22.0-36.0)
[2017-03-26 16:01] LABS: MPV 10.4 FL (7.4-10.4)
[2017-03-26] MEDS ORDERED: DIPRIVAN 1% ONE (18:53)
[2017-03-26] MEDS ORDERED: QUELICIN (DOSE) ONE (18:55)
[2017-03-26] MEDS: POTASSIUM CHLORIDE 20 MEQ, MAGNESIUM SULFATE 2 GM, THIAMINE 100 MG, FOLIC ACID 1 MG, M.... IV SCH ×6 (20:52)
[2017-03-27] MEDS: SANDOSTATIN 500 MICROGM in D5W 100 ML IV SCH ×3 (01:16→19:48)
[2017-03-27] MEDS: PROTONIX 80 MG in NS 80 ML IV SCH ×2 (01:16→11:36)
[2017-03-27] MEDS: POTASSIUM CHLORIDE 20 MEQ, MAGNESIUM SULFATE 2 GM, THIAMINE 100 MG, FOLIC ACID 1 MG, M.... IV SCH ×12 (01:21→19:47)
[2017-03-27 05:30] LABS: MANUAL DIFF NEEDED? NO
[2017-03-27 05:43] LABS: BASO% 0.6 % (0.0-0.8); EOS# 0.48 X1000 (0.0-0.7); HEMATOCRIT 24.6 % (42.0-52.0); HEMOGLOBIN 8.1 g/dL (14.0-18.0); INR 1.43; LYMPH# 1.36 X1000 (1.2-3.4); LYMPH% 25.5 % (20.5-51.1); MCH 30.9 PG (27-31); MCHC 32.9 g/dL (33-37); MCV 93.9 FL (81-99); MONO# 0.53 X1000 (0.11-0.59); MONO% 9.9 % (1.7-9.3); MPV 10.8 FL (7.4-10.4); PLT 71 X1000 (130-400); PROTIME 15.4 Seconds (9.2-11.7); RBC 2.62 XMIL (4.7-6.1)
[2017-03-27] MEDS: D5 1/2 NS 1,000 ML IV SCH ×4 (06:21→19:47)
[2017-03-27 06:57] LABS: AGAP 8; ALBUMIN 2.6 g/dL (3.5-5.0); ALKALINE PHOSPHATASE 73 U/L (32-122); BUN 12 mg/dL (8-22); CALCIUM 7.9 mg/dL (8.8-10.2); CHLORIDE 110 mmol/L (98-107); COSMO 280; GOT 59 U/L (10-34); GPT 24 U/L (10-44); POTASSIUM 2.8 mmol/L (3.5-5.1); SODIUM 140 mmol/L (136-145); TCO2 22 mmol/L (25-35); TOTAL BILIRUBIN 2.15 mg/dL (0.20-1.00)
[2017-03-27] MEDS: LACTULOSE PO SCH ×2 (09:07→19:59)
[2017-03-27] MEDS ORDERED: MAGNESIUM SULFATE 2 GM/S.W.I. 2 GM/50 ML IVPB IV ONE (09:27)
[2017-03-27] MEDS ORDERED: POTASSIUM CHLORIDE 40 MEQ in NS 250 ML IV ONE (10:00)
[2017-03-28] MEDS ORDERED: PROTONIX 80 MG in NS 80 ML IV SCH (02:52)
[2017-03-28] MEDS: D5 1/2 NS 1,000 ML IV SCH ×2 (03:56→11:58)
[2017-03-28 05:40] LABS: MANUAL DIFF NEEDED? NO
[2017-03-28 06:10] LABS: BASO% 0.4 % (0.0-0.8); EOS# 0.45 X1000 (0.0-0.7); EOS% 8.2 % (0.0-10.0); HEMATOCRIT 26.2 % (42.0-52.0); HEMOGLOBIN 8.7 g/dL (14.0-18.0); IMM GRAN# 0.02 X1000 (0.0-0.04); IMM GRAN% 0.4 % (0.0-0.5); LYMPH# 1.18 X1000 (1.2-3.4); LYMPH% 21.5 % (20.5-51.1); MCH 31.1 PG (27-31); MCHC 33.2 g/dL (33-37); MCV 93.6 FL (81-99); MONO# 0.52 X1000 (0.11-0.59); MONO% 9.5 % (1.7-9.3); PLT 67 X1000 (130-400)
[2017-03-28] MEDS: SANDOSTATIN 500 MICROGM in D5W 100 ML IV SCH (06:13)
[2017-03-28 06:29] LABS: AGAP 8; ALBUMIN 2.6 g/dL (3.5-5.0); ALKALINE PHOSPHATASE 82 U/L (32-122); BUN 7 mg/dL (8-22); CALCIUM 7.4 mg/dL (8.8-10.2); CHLORIDE 107 mmol/L (98-107); COSMO 271; GOT 54 U/L (10-34); GPT 22 U/L (10-44); MAGNESIUM 2.1 mg/dL (1.5-2.7); POTASSIUM 3.5 mmol/L (3.5-5.1); SODIUM 135 mmol/L (136-145); TCO2 20 mmol/L (25-35); TOTAL BILIRUBIN 1.74 mg/dL (0.20-1.00); TOTAL PROTEIN 4.9 g/dL (6.3-8.3)
[2017-03-28] MEDS ORDERED: M.V.I.-12 10 ML, FOLIC ACID 1 MG, MAGNESIUM SULFATE 1 GM, THIAMINE 100 MG in NS 1,000 ML IV SCH (09:00)
[2017-03-28] MEDS: LACTULOSE PO SCH (09:03)
[2017-03-28] MEDS ORDERED: CARAFATE PO SCH (13:00)
[2017-03-28 16:12] VITALS: BP 114/67
[2017-03-28] MEDS ORDERED: PRILOSEC PO SCH (21:00)
== END 2017-03-28 17:30 | disposition home or self-care (01) ==
LOC: ED 16:37 → EDIPHOLD 20:16 → SUATTDRO 20:16 → ICU 22:38
PROVIDERS: ATTEND Emergency Medicine